=== PATIENT | female | born 1955 | race Two or more races ===

== ENCOUNTER 2016-09-28 19:26 | Inpatient (IN) | payer OTHER ==
--- NOTE | 2016-09-28 20:42 | PDOC ---
History of Present Illness <Wilfred Chu - Last Filed: 09/28/16 23:26> - General History Source: Patient, Family, Old Records Exam Limitations: No Limitations - History of Present Illness Initial Comments: 09/28/16 21:56 The patient is a 61 year old female presenting with family, with a significant past medical history of HTN, HLD, diabetes mellitus, Coronary artery disease s/ p CABG, who presents to the emergency department with headache and fever for the last 3 days. She reports that her fevers are intermittent in nature, going as high as 100.0 F. The daughter has been giving the patient Tylenol during this time frame, with the last dose being this morning. She reports that her headache is localized in the front and back of her head, ranging from mild to moderate, without radiation. She notes that the pain is exacerbated when states a deep breath. She denies photophobia or double vision. She also reports right lower extremity pain with decreased sensation and swelling. She notes that she had a draining tube placed on her gallbladder 3 weeks ago for a gallbladder infection. As per family, the physicians did not believe she was a candidate for gallbladder removal due to her recent cardiac bypass surgery. The patient denies shortness of breath and dizziness. Denies chills, nausea, vomit, diarrhea and constipation. Denies dysuria, frequency, urgency and hematuria. Allergies: None Past surgical history: CABG (08/2016) with stents (x4) Social history: No alcohol, tobacco or drug use reported <Abebe Champion - Last Filed: 09/28/16 23:48> - General Chief Complaint: Pain, Acute Stated Complaint: PAIN Time Seen by Provider: 09/28/16 20:32 Past History - Past Medical History Asthma: Yes Cardiac Disorders: Yes Diabetes: Yes HTN: Yes Hypercholesterolemia: Yes - Surgical History Cardiac Surgery: Yes ([facility] 08/2016) Cholecystectomy: (drain to GB) - Psycho/Social/Smoking Cessation Hx Anxiety: No Suicidal Ideation: No Smoking History: Never smoked Have you smoked in the past 12 months: No Hx Alcohol Use: No Drug/Substance Use Hx: No Substance Use Type: None Hx Substance Use Treatment: No <Wilfred Chu - Last Filed: 09/28/16 23:26> <Abebe Champion - Last Filed: 09/28/16 23:48> - Past Medical History Allergies/Adverse Reactions: Allergies Allergy/AdvReac Type Severity Reaction Status Date / Time aspirin Allergy Hives Verified 09/28/16 19:39 Home Medications: Ambulatory Orders Aspirin [ASA -] 81 mg PO DAILY 08/24/16 Docusate Sodium [Dok] 100 mg PO TID 08/24/16 Metformin HCl 500 mg PO BID 08/24/16 Sennosides [Senna] 8.6 mg PO HS 08/24/16 Acetaminophen [Tylenol .Regular Strength -] 650 mg PO Q6H PRN #0 tablet Amlodipine Besylate [Norvasc -] 10 mg PO DAILY #30 tablet 09/11/16 Amox-Tr/K Cl [Augmentin 875-125mg Tablet -] 1 tab PO BID@0800,1730 #20 tablet Atorvastatin Ca [Lipitor] 80 mg PO HS tablet 09/11/16 Furosemide [Lasix -] 20 mg PO DAILY tablet 09/11/16 Metoprolol Tartrate [Lopressor -] 75 mg PO BID #30 tablet 09/11/16 Pantoprazole Sodium [Protonix -] 40 mg PO DAILY #30 09/11/16 Potassium Chloride [K-Dur -] 40 meq PO DAILY 09/11/16 Review of Systems - Review of Systems Able to Perform ROS?: Yes Comments:: 09/28/16 21:54 CONSTITUTIONAL: +Fever. No chills, no fatigue EYES: No visual changes ENT: No ear pain, no sore throat CARDIOVASCULAR: No chest pain, no palpitations RESPIRATORY: No cough, no SOB GI: No abdominal pain, no nausea, no vomiting, no constipation, no diarrhea GENITOURINARY: No dysuria, no frequency, no hematuria EXTREMITIES: +Right lower extremity pain, swelling and numbness. MUSKULOSKELETAL: No backpain, no joint pain, no myalgias SKIN: No rash NEURO: +Headache <Abebe Champion - Last Filed: 09/28/16 23:48> *Physical Exam - Vital Signs Last Vital Signs Temp Pulse Resp BP Pulse Ox 99.8 F H 128 H 20 129/60 94 L 09/28/16 19:45 09/28/16 19:45 09/28/16 19:45 09/28/16 19:45 09/28/16 19:45 - Physical Exam Comments: 09/28/16 23:22 EXAMINATION CONSTITUTIONAL: Awake and alert; well-nourished, in no apparent distress HEAD: Normocephalic; atraumatic EYES: PERRL; EOM intact; no photophobia; ENMT: External appears normal; normal oropharynx; because membranes are dry NECK: Supple; non-tender; no cervical lymphadenopathy CARD: Normal S1, S2; no murmurs, rubs, or gallops; + well healed midline sternotomy scar is noted; RESP: Normal chest excursion with respiration; + decreased breath sounds at left base; no wheezes, rhonchi, or rales ABD: Soft, non-distended; non-tender; no palpable organomegaly, no palpable hernias; + cholecystostomy tube is noted in the right upper quadrant draining bile; EXT: Normal ROM in all four extremities; + 2 pitting edema of the right lower extremity; +tender to palpation along the right trapezius; distal pulses intact SKIN: Warm, dry, no petechia NEURO: Cranial nerves II through XII are grossly intact; motor is 5 of 54; <Wilfred Chu - Last Filed: 09/28/16 23:26> - Vital Signs Last Vital Signs Temp Pulse Resp BP Pulse Ox 99.8 F H 128 H 20 129/60 94 L 09/28/16 19:45 09/28/16 19:45 09/28/16 19:45 09/28/16 19:45 09/28/16 19:45 <Abebe Champion - Last Filed: 09/28/16 23:48> Heart Score/ECG Review #1 ECG reviewed & interpreted by me at: 22:12 09/28/16 20:50 Ventricular rate: 123 bpm Sinus tachycardia Nonspecific ST and T wave abnormality <Abebe Champion - Last Filed: 09/28/16 23:48> ED Treatment Course - LABORATORY CBC & Chemistry Diagram: 09/28/16 21:39 09/28/16 21:39 <Wilfrde Chu - Last Filed: 09/28/16 23:26> - LABORATORY CBC & Chemistry Diagram: 09/28/16 21:39 09/28/16 21:39 - ADDITIONAL ORDERS Additional order review: 09/28/16 21:39 RBC 4.33 MCV 84.1 MCHC 33.6 RDW 14.7 MPV 8.5 Neutrophils % 64.4 D Lymphocytes % 27.8 D Monocytes % 6.3 Eosinophils % 0.8 Basophils % 0.7 - RADIOLOGY Radiograph Interpretation: 09/28/16 22:35 Chest X-Ray Reviewed by: Dr. Giselle Mesa Impression: Interval atelectatic changes and probable patchy infiltrates in the left lower lobe. <Abebe Champion - Last Filed: 09/28/16 23:48> Medical Decision Making - Medical Decision Making 09/28/16 23:24 Patient 61-year-old female with multiple comorbidities who presents with low- grade fever and a nonproductive cough. In the ER, patient is awake and alert, nontoxic-appearing, without evidence of meningismus. Patient's febrile, tachycardic and hypoxemic; CBC reveals mild leukocytosis with normal differential. CMP reveals a normal lactic acid. Urinalysis reveals a mixture of pyuria and microscopic hematuria. Chest x-ray reveals a left lower lobe infiltrate. Given patient's previous hospital admissions, hospital-acquired pneumonia is suspected. We'll cover with vancomycin and Zosyn. Will rule out DVT with Doppler ultrasound. Will admit. <Wilfred Chu - Last Filed: 09/28/16 23:26> - Medical Decision Making 09/28/16 23:47 Dr. Becerril was called regarding the patient at 10:57pm Dr. Becerril was consulted regarding the patient at 11:05pm [phone] <Abebe Champion - Last Filed: 09/28/16 23:48> *DC/Admit/Observation/Transfer - Discharge Dispostion Admit: Yes <Wilfred Chu - Last Filed: 09/28/16 23:26> - Attestations Scribe Attestion: 09/28/16 21:53 Documentation prepared by Abebe Champion, acting as medical transcription radiology for Wilfred Chu MD <Abebe Champion - Last Filed: 09/28/16 23:48> Diagnosis at time of Disposition: Pneumonia Qualifiers: Pneumonia type: due to unspecified organism Laterality: left Lung location: lower lobe of lung Qualified Code(s): J18.1 - Lobar pneumonia, unspecified organism
[2016-09-28] MEDS ORDERED: SODIUM CHLORIDE 0.9% 1000 ML INFUS.BAG IV PRN (20:54)
[2016-09-28] MEDS ORDERED: ACETAMINOPHEN 325 MG TABLET (FP) PO ONE (21:13)
[2016-09-28 21:50] LABS: BASOPHIL 0.7 % (0-2.0); EOSINOPHIL 0.8 % (0-4.5); MCH 28.3 pg (25.7-33.7); MCHC 33.6 g/dl (32.0-36.0); MEAN CELL VOLUME 84.1 fl (80-96); MEAN PLT VOLUME 8.5 fl (7.5-11.1); NEUTROPHILS 64.4 % (42.8-82.8); PLATELET COUNT 343 K/MM3 (134-434); RDW 14.7 % (11.6-15.6); WHITE BLOOD COUNT 12.3 K/mm3 (4.0-10.0)
[2016-09-28 22:03] LABS: INR 1.18 (0.82-1.09)
[2016-09-28 22:05] LABS: VENOUS BLOOD GAS HCO3 23.9 meq/L (19-25); VENOUS PH 7.46 (7.32-7.42)
[2016-09-28 22:05] LABS: ACTIVATED PTT 35.6 SECONDS (26.9-34.4)
[2016-09-28 22:12] LABS: ALBUMIN 3.3 g/dl (3.4-5.0); ANION GAP 14 (8-16); BILIRUBIN,TOTAL 0.3 mg/dL (0.2-1.0); CO2 24 mmol/L (21-32); CREATININE 0.5 mg/dL (0.55-1.02); GLUCOSE,RANDOM 192 mg/dL (74-106); SGPT/ALT 48 U/L (12-78)
[2016-09-28 22:14] LABS: ALK PHOS 176 U/L (45-117); TROPONIN I < 0.02 ng/ml (0.00-0.05)
[2016-09-28 22:23] LABS: SGOT/AST 35 U/L (15-37)
[2016-09-28 22:26] LABS: URINE APPEARANCE SLCLOUDY; URINE BILIRUBIN NEGATIVE (NEGATIVE); URINE BLOOD NEGATIVE (NEGATIVE); URINE COLOR YELLOW; URINE GLUCOSE (UA) NEGATIVE (NEGATIVE); URINE KETONE NEGATIVE (NEGATIVE); URINE NITRITE NEGATIVE (NEGATIVE); URINE PROTEIN NEGATIVE (NEGATIVE); URINE UROBILINOGEN NEGATIVE E.U./dl (0.2-1.0)
[2016-09-28] MEDS ORDERED: PIPERACILLIN/TAZOB 3.375 GM/50 ML PRE-DOCKED IV ONE (22:26)
[2016-09-28 22:30] LABS: URINE LEUK ESTERASE 1+ (NEGATIVE)
[2016-09-28 22:32] LABS: CALCIUM OXALATE CRYSTALS MODERATE /hpf (NONE SEEN); URINE BACTERIA FEW /hpf (NONE SEEN); URINE MUCUS MANY; URINE RBC 39 /hpf (0-3); URINE WBC 31 /hpf (3-5)
[2016-09-28] MEDS ORDERED: AZITHROMYCIN IVPB 500 MG in DEXTROSE 5%-WATER - 250 ML IVPB ONE (22:37)
[2016-09-28] MEDS ORDERED: CEFTRIAXONE 1 GM in DEXTROSE 5%-WATER - 50 ML IVPB ONE (22:37)
[2016-09-28] MEDS ORDERED: PIPERACILLIN/TAZOB 3.375 GM 3.375 GM in DEXTROSE 5%-WATER - 50 ML IVPB ONE (22:39)
[2016-09-28] MEDS ORDERED: VANCOMYCIN 1,250 MG in DEXTROSE 5%-WATER - 250 ML IVPB ONE (22:47)
[2016-09-28] MEDS ORDERED: PIPERACILLIN/TAZOB 3.375 GM 50 ML IVPB ONE (22:53)
[2016-09-28] MEDS ORDERED: VANCOMYCIN 1 GRAM (PRE-DOCKED) 250 ML IVPB ONE (22:53)
--- NOTE | 2016-09-29 00:05 | HP ---
CHIEF COMPLAINT: Shortness of breath PCP: No PCP HISTORY OF PRESENT ILLNESS: Patient is a 61-year-old sinhala speaking female presented with the chief complaints of shortness of breath since few days. As per the patient, she has been having SOB even at rest associated with dry cough. SOB increases with deep breath and said it hurts in the upper side of the right chest and neck. [place] feverish but temperature wasn't recorded. Denies chills, rigors, sweating, abdominal pain, nausea or vomiting. Patient states that she had a CABG a month ago at [facility]. In the mean time, she had severe abdominal pain and was diagnosed with acalculous cholecystitis. Since she had just undergone CABG, cholecystostomy was done 3 weeks ago and elective cholecystectomy is scheduled on October,. Bowel/Bladder habit normal. Sleep/Appetite normal. ER course was notable for: (1) T-99.8 F; Tachycardic 128 bpm, Spo2- 94 % RA; Leukocytosis (12.3); UA-1 +LE ; Urine RBC 39; Urine WBC 31 (2) CXR- Some atelectasis with left lower lobe pneumonia (3) IV Zosyn; IV Vancomycin Recent Travel: None PAST MEDICAL HISTORY: Hypertension, Hyperlipidemia, Diabetes Mellitus, CAD s/p CABG. PAST SURGICAL HISTORY: As mentioned above Social History: Smoking: Denies Alcohol: Denies Drugs: Denies Family History: Unknown Allergies aspirin Allergy (Verified 09/28/16 19:39) Hives PT STATES IF SHE TAKES 325MG DEVELOPS FACIAL SWELLING,RASH AND HIVES. But she takes ASA 81mg everyday without any allergy. HOME MEDICATIONS: Home Medications Medication Instructions Recorded Aspirin [ASA -] 81 mg PO DAILY 08/24/16 Docusate Sodium [Dok] 100 mg PO TID 08/24/16 Metformin HCl 500 mg PO BID 08/24/16 Sennosides [Senna] 8.6 mg PO HS 08/24/16 Acetaminophen [Tylenol .Regular 650 mg PO Q6H PRN #0 tablet 09/11/16 Strength -] Amlodipine Besylate [Norvasc -] 10 mg PO DAILY #30 tablet 09/11/16 Amox-Tr/K Cl [Augmentin 875-125mg 1 tab PO BID@0800,1730 #20 tablet 09/11/16 Tablet -] Atorvastatin Ca [Lipitor] 80 mg PO HS tablet 09/11/16 Furosemide [Lasix -] 20 mg PO DAILY tablet 09/11/16 Metoprolol Tartrate [Lopressor -] 75 mg PO BID #30 tablet 09/11/16 Pantoprazole Sodium [Protonix -] 40 mg PO DAILY #30 09/11/16 Potassium Chloride [K-Dur -] 40 meq PO DAILY 09/11/16 REVIEW OF SYSTEMS CONSTITUTIONAL: Present: Feverish Absent: chills, diaphoresis, generalized weakness, malaise, loss of appetite, weight change HEENT: Absent: rhinorrhea, nasal congestion, throat pain, throat swelling, difficulty swallowing, mouth swelling, ear pain, eye pain, visual changes CARDIOVASCULAR: Absent: chest pain, syncope, palpitations, irregular heart rate, lightheadedness , peripheral edema RESPIRATORY: Present: shortness of breath, dyspnea with exertion Absent: cough, , orthopnea, wheezing, stridor, hemoptysis GASTROINTESTINAL: Absent: abdominal pain, abdominal distension, nausea, vomiting, diarrhea, constipation, melena, hematochezia GENITOURINARY: Absent: dysuria, frequency, urgency, hesitancy, hematuria, flank pain, genital pain MUSCULOSKELETAL: Absent: myalgia, arthralgia, joint swelling, back pain, neck pain SKIN: Absent: rash, itching, pallor HEMATOLOGIC/IMMUNOLOGIC: Absent: easy bleeding, easy bruising, lymphadenopathy, frequent infections ENDOCRINE: Absent: unexplained weight gain, unexplained weight loss, heat intolerance, cold intolerance NEUROLOGIC: Absent: headache, focal weakness or paresthesias, dizziness, unsteady gait, seizure, mental status changes, bladder or bowel incontinence PSYCHIATRIC: Absent: anxiety, depression, suicidal or homicidal ideation, hallucinations. PHYSICAL EXAMINATION Vital Signs - 24 hr 09/28/16 19:45 Temperature 99.8 F H Pulse Rate 128 H Respiratory 20 Rate Blood Pressure 129/60 O2 Sat by Pulse 94 L Oximetry (%) GENERAL: Moderately built female, Awake, alert, and fully oriented, in no acute distress. HEAD: Normal with no signs of trauma. EYES: EOM intact, no pallor or icterus. EARS, NOSE, THROAT: Ears normal. Moist mucous membranes. NECK: Supple. LUNGS: Breath sounds equal, clear to auscultation bilaterally. No wheezes, and no crackles. No accessory muscle use. HEART: Surgical scar s/p CABG, clean wound, no discharge, tenderness on palpation, Regular rate and rhythm, normal S1 and S2 without murmur. ABDOMEN: Cholecystostomy with a drain placed on the right upper quadrant, Soft, tenderness around the surgical site, not distended, normoactive bowel sounds, no guarding, no rebound, no masses. Hepatomegaly or splenomegaly couldn't be appreciated. MUSCULOSKELETAL: Normal range of motion at all joints. No bony deformities or tenderness. No CVA tenderness. UPPER EXTREMITIES: 2+ pulses, warm, well-perfused. No cyanosis. No clubbing. No peripheral edema. LOWER EXTREMITIES: 2+ pulses, warm, well-perfused. Tenderness on palpation. Right lower extremity swelling > Left. NEUROLOGICAL: Cranial nerves II-XII intact. Normal speech. Gait not observed. PSYCHIATRIC: Cooperative. Good eye contact. Appropriate mood and affect. SKIN: Warm, dry cracked skin on the foot, normal turgor, no rashes or lesions noted, normal capillary refill. Laboratory Results - last 24 hr 09/28/16 09/28/16 09/28/16 21:39 21:39 21:39 WBC 12.3 H D RBC 4.33 Hgb 12.3 D Hct 36.4 MCV 84.1 MCHC 33.6 RDW 14.7 Plt Count 343 MPV 8.5 Neutrophils % 64.4 D Lymphocytes % 27.8 D Monocytes % 6.3 Eosinophils % 0.8 Basophils % 0.7 INR 1.18 H PTT (Actin FS) 35.6 H VBG pH POC VBG pCO2 POC VBG pO2 Mixed VBG HCO3 Sodium 137 Potassium 4.3 Chloride 99 Carbon Dioxide 24 Anion Gap 14 BUN 9 D Creatinine 0.5 L D Creat Clearance w eGFR > 60 Random Glucose 192 H Lactic Acid Calcium 9.0 Total Bilirubin 0.3 D AST 35 D ALT 48 D Alkaline Phosphatase 176 H Creatine Kinase 108 Troponin I < 0.02 Total Protein 7.0 Albumin 3.3 L D Urine Color Urine Appearance Urine pH Ur Specific [place] Urine Protein Urine Glucose (UA) Urine Ketones Urine Blood Urine Nitrite Urine Bilirubin Urine Urobilinogen Ur Leukocyte Esterase Urine RBC Urine WBC Ur Epithelial Cells Calcium Oxalate Crystal Urine Bacteria Urine Mucus 09/28/16 09/28/16 09/28/16 21:39 22:00 22:19 WBC RBC Hgb Hct MCV MCHC RDW Plt Count MPV Neutrophils % Lymphocytes % Monocytes % Eosinophils % Basophils % INR PTT (Actin FS) VBG pH 7.46 H POC VBG pCO2 33.9 L POC VBG pO2 40.3 Mixed VBG HCO3 23.9 Sodium Potassium Chloride Carbon Dioxide Anion Gap BUN Creatinine Creat Clearance w eGFR Random Glucose Lactic Acid 1.420 Calcium Total Bilirubin AST ALT Alkaline Phosphatase Creatine Kinase Troponin I Total Protein Albumin Urine Color Yellow Urine Appearance Slcloudy Urine pH 5.0 D Ur Specific [place] 1.023 Urine Protein Negative Urine Glucose (UA) Negative Urine Ketones Negative Urine Blood Negative Urine Nitrite Negative Urine Bilirubin Negative Urine Urobilinogen Negative Ur Leukocyte Esterase 1+ H Urine RBC 39 Urine WBC 31 Ur Epithelial Cells Rare Calcium Oxalate Crystal Moderate Urine Bacteria Few Urine Mucus Many ASSESSMENT/PLAN: Patient is a 61 year old female with significant past medical history of Hypertension, Hyperlipidemia, Diabetes Mellitus, CAD s/p CABG presented with the chief complaints of shortness of breath since few days. # Hospital acquired Pneumonia Patient presented with shortness of breath, pleuritic chest pain x 3 days. On arrival, T-99.8 F; Tachycardic 128 bpm, Spo2- 94 % RA; Leukocytosis (12.3) ; CXR showed some atelectasis with left lower lobe pneumonia Flu swab negative for Influenza Patient received IV Zosyn; IV Vancomycin in the ED Admitted in Med-Surg IV Zosyn and Vancomycin to be continued after ID approval. ID consult placed Blood culture, urine culture pending. CXR to be repeated tomorrow Nasal oxygen PRN # Gall stone s/p cholecystostomy Measure the output Would consider surgical consult # CAD s/p CABG Continue Aspirin, statin # Hypertension Continue Metoprolol # Hyperlipidemia Continue statin # Diabetes Mellitus Finger stick glucose monitoring Insulin sliding scale HbA1c pending Metformin continue # Right leg swelling Doppler of right leg-negative for DVT # FEN Not on IV fluids Electrolytes to be repeated tomorrow Diabetic diet # Prophylaxis For DVT- On Heparin 5000 IU sq For GI- On pantoprazole # Code Status Full Code # Dispo: Admitted in Med-Surg. Duration of stay unknown Illness, Investigation and Plan of care explained to the patient. She verbalized understanding. Case seen and discussed with Dr. Reyes. Visit type - Emergency Visit Emergency Visit: Yes ED Registration Date: 09/28/16 Care time: The patient presented to the Emergency Department on the above date and was hospitalized for further evaluation of their emergent condition. - New Patient This patient is new to me today: Yes Date on this admission: 09/28/16 - Critical Care Critical Care patient: No
--- NOTE | 2016-09-29 00:23 | PN ---
<Azar Reyes - Last Filed: 09/29/16 00:23> Teaching Attending Note Name of Resident: Padmini Dallas ATTENDING PHYSICIAN STATEMENT I saw and evaluated the patient. I reviewed the resident's note and discussed the case with the resident. I agree with the resident's findings and plan as documented. SUBJECTIVE: OBJECTIVE: ASSESSMENT AND PLAN: <Aletha Rodriguez - Last Filed: 09/29/16 00:28> Teaching Attending Note ATTENDING PHYSICIAN STATEMENT I saw and evaluated the patient. I reviewed the resident's note and discussed the case with the resident. I agree with the resident's findings and plan as documented. SUBJECTIVE: Patient is a 61 yo F with a PMHx of recent hospitalization, HTN, HLD, diabetes mellitus, Coronary artery disease s/p CABG who presents with right shoulder pain and pleuritic chest pain for 3 days. History translated as per patients daughter. Patient reports the pain worsens upon inspiration. Patient notes she was recently hospitalized for cardiac bypass surgery and received antibiotics. Patient reports associated right lower extremity pain and edema. Patient also notes polyuria, fevers, shortness of breath, and a poor appetite. Patient denies cough and lightheadedness. Patient states her last BM was 2 days ago. Family Hx: [place], [place] OBJECTIVE: Last Vital Signs Temp Pulse Resp BP Pulse Ox 99.8 F H 128 H 20 129/60 94 L 09/28/16 19:45 09/28/16 19:45 09/28/16 19:45 09/28/16 19:45 09/28/16 19:45 GENERAL: Awake, alert, and fully oriented, in no acute distress. HEENT: Atraumatic. Moist mucosa. Normocephalic. No sinus tenderness. No LAD. NECK: No JVD. No thyroid masses. Supple. LUNGS: Clear to auscultation bilaterally. No wheezing, rhonchi or rales. HEART: Regular rate and rhythm, normal S1 and S2, no murmurs, rubs or gallops, peripheral pulses normal and equal bilaterally. Tenderness on palpation of sternum around post surgical CABG scar. ABDOMEN: Soft, nontender, normoactive bowel sounds. No guarding, no rebound. No Masses. RUQ drain MUSCULOSKELETAL: No joint tenderness or erythema. No muscle tenderness. Normal muscle bulk and tone. EXTREMITIES: Normal inspection, Right LE edema. No clubbing or cyanosis. Moves all extremities. NEUROLOGICAL: Normal speech, no focal sensorimotor deficits. SKIN: Warm, dry, normal turgor, no rashes or lesions noted. CBCD WBC 12.3 K/mm3 (4.0-10.0) H D 09/28/16 21:39 RBC 4.33 M/mm3 (3.60-5.2) 09/28/16 21:39 Hgb 12.3 GM/dL (10.7-15.3) D 09/28/16 21:39 Hct 36.4 % (32.4-45.2) 09/28/16 21:39 MCV 84.1 fl (80-96) 09/28/16 21:39 MCHC 33.6 g/dl (32.0-36.0) 09/28/16 21:39 RDW 14.7 % (11.6-15.6) 09/28/16 21:39 Plt Count 343 K/MM3 (134-434) 09/28/16 21:39 MPV 8.5 fl (7.5-11.1) 09/28/16 21:39 CMP Sodium 137 mmol/L (136-145) 09/28/16 21:39 Potassium 4.3 mmol/L (3.5-5.1) 09/28/16 21:39 Chloride 99 mmol/L (98-107) 09/28/16 21:39 Carbon Dioxide 24 mmol/L (21-32) 09/28/16 21:39 Anion Gap 14 (8-16) 09/28/16 21:39 BUN 9 mg/dL (7-18) D 09/28/16 21:39 Creatinine 0.5 mg/dL (0.55-1.02) L D 09/28/16 21:39 Creat Clearance w eGFR > 60 (>60) 09/28/16 21:39 Calcium 9.0 mg/dL (8.5-10.1) 09/28/16 21:39 Total Bilirubin 0.3 mg/dL (0.2-1.0) D 09/28/16 21:39 AST 35 U/L (15-37) D 09/28/16 21:39 ALT 48 U/L (12-78) D 09/28/16 21:39 Alkaline Phosphatase 176 U/L (45-117) H 09/28/16 21:39 Total Protein 7.0 g/dl (6.4-8.2) 09/28/16 21:39 Albumin 3.3 g/dl (3.4-5.0) L D 09/28/16 21:39 ASSESSMENT AND PLAN: 61 yo F with recent Hx of hospitalization that presents to ED complaining of pleuritic chest pain. 1.) Pleuritic chest pain associated with leukocytosis and evidence of radiological findings of left lower lobe pneumonia in a patient with Hx of recent hospitalization and treatment with antibiotics. Systemic inflammatory response syndrome. -IVF -BLood cultures -IV antibiotics for coverage of Hospital acquired pneumonia -If no fever after 24 hours, may DC home on oral antibiotics 2.) Recent Hx of acalculous cholecystitis s/p cholecystostomy. No drainage noted. Liver enzymes and bilirubin within normal limits. -Surgery follow up to plan for elective cholecystectomy 3.) Hx of coronary artery disease and recent CABG -Continue with pain control PRN tylenol, IV narcotics as needed for breakthrough pain -Incentive spirometry -Continue current medication regimen, metoprolol, aspirin, statins, lasix 4.) Diabetes -Continue metformin and provide coverage with sliding scale 5.) HTN controlled -Continue with current medications 6.) US of RLE to r/o DVT DVT ppx -Heparin sc Admit to [facility] Documentation prepared by Aletha Rodriguez, acting as certified medical dosimetrist for Azar Reyes M.D.
[2016-09-29] MEDS ORDERED: ACETAMINOPHEN 325 MG TABLET (FP) PO PRN (00:49)
[2016-09-29 03:29] VITALS: BMI 29.8
[2016-09-29] MEDS: DOCUSATE SODIUM 100 MG CAPSULE (FP) PO SCH ×2 (06:04→13:00)
[2016-09-29] MEDS: HEPARIN NA (PORCINE) 5,000 UNITS/ML 1ML VIAL SQ SCH ×2 (06:04→13:00)
[2016-09-29] MEDS: INSULIN SLIDING SCALE (NOVOLOG) 1 VIAL SQ SCH ×3 (06:17→17:42)
[2016-09-29] MEDS: metFORMIN HCL 500 MG TABLET (FP) PO SCH ×2 (06:28→17:42)
[2016-09-29 07:58] LABS: BASOPHIL 0.7 % (0-2.0); EOSINOPHIL 1.6 % (0-4.5); MCH 28.5 pg (25.7-33.7); MEAN PLT VOLUME 8.3 fl (7.5-11.1); NEUTROPHILS 50.1 % (42.8-82.8); PLATELET COUNT 280 K/MM3 (134-434); RDW 14.4 % (11.6-15.6); WHITE BLOOD COUNT 7.4 K/mm3 (4.0-10.0)
[2016-09-29 08:26] LABS: INR 1.25 (0.82-1.09); PROTHROMBIN TIME (PATIENT) 13.8 SEC (9.98-11.88)
[2016-09-29 08:27] LABS: ACTIVATED PTT 33.6 SECONDS (26.9-34.4)
[2016-09-29 08:36] LABS: ALBUMIN 2.9 g/dl (3.4-5.0); ANION GAP 11 (8-16); CO2 26 mmol/L (21-32)
[2016-09-29 08:42] LABS: ALK PHOS 148 U/L (45-117); BILIRUBIN,TOTAL 0.4 mg/dL (0.2-1.0); CALCIUM 8.8 mg/dL (8.5-10.1); CREATININE 0.4 mg/dL (0.55-1.02); GLUCOSE,RANDOM 160 mg/dL (74-106); SGOT/AST 18 U/L (15-37); SGPT/ALT 39 U/L (12-78); TOT PROT 6.3 g/dl (6.4-8.2)
[2016-09-29] MEDS ORDERED: FUROSEMIDE 20 MG TABLET (FP) PO SCH (10:00)
[2016-09-29] MEDS ORDERED: amLODIPine BESYLATE 10 MG TABLET (FP) PO SCH (10:00)
[2016-09-29] MEDS ORDERED: PANTOPRAZOLE 40 MG TABLET (FP) PO SCH (10:00)
[2016-09-29] MEDS ORDERED: ASPIRIN 81 MG CHEWABLE TABLETS PO SCH (10:00)
[2016-09-29] MEDS ORDERED: POTASSIUM CHLORIDE TABS 20 MEQ TABLET.ER (FP) PO SCH (10:00)
[2016-09-29] MEDS ORDERED: METOPROLOL TARTRATE 25 MG TABLET (FP) PO SCH (10:00)
--- NOTE | 2016-09-29 12:21 | EKG ---
Test Reason : Blood Pressure : / mmHG Vent. Rate : 123 BPM Atrial Rate : 123 BPM P-R Int : 150 ms QRS Dur : 084 ms QT Int : 314 ms P-R-T Axes : 036 080 190 degrees QTc Int : 449 ms SINUS TACHYCARDIA NONSPECIFIC ST AND T WAVE ABNORMALITY ABNORMAL ECG WHEN COMPARED WITH ECG OF 08-SEP-2016 11:39, MINIMAL CRITERIA FOR INFERIOR INFARCT ARE NO LONGER PRESENT NONSPECIFIC T WAVE ABNORMALITY HAS REPLACED INVERTED T WAVES IN INFERIOR LEADS T WAVE INVERSION NO LONGER EVIDENT IN LATERAL LEADS Confirmed by SUJATA BROOKS MD ([id number]) on 09/29/2016 12:21:24 PM Referred By: Confirmed By:SUJATA BROOKS MD
[2016-09-29] MEDS ORDERED: PIPERACILLIN/TAZOB 3.375 GM 50 ML IVPB ONE (12:45)
--- NOTE | 2016-09-29 13:09 | MSN ---
Progress Note (short form) - Note Progress Note: Saw patient this AM. Patient has improved since admission overnight. Patient complains of no more SOB, but complains of a 4/10 pain when she takes deep breaths. Pain is reproducible in right upper shoulder and neck while supine. Patient also complains of pain in her right ankle area which appears bruised. Pain in ankle started after her CABG surgery on 08/11. Patient denies F/C, N/V, shortness of breath, dizziness/lightheadedness, chest pain, diarrhea, constipation. Current Medications Generic Name Dose Route Start Last Admin Trade Name Freq PRN Reason Stop Dose Admin Acetaminophen 650 mg 09/29/16 00:49 Tylenol - PO Q6H PRN FEVER OR PAIN Amlodipine Besylate 10 mg 09/29/16 10:00 09/29/16 09:43 Norvasc - PO 10 mg DAILY BLANCA Administration Aspirin 81 mg 09/29/16 10:00 09/29/16 09:42 Asa - PO 81 mg DAILY BLANCA Administration Atorvastatin Calcium 80 mg 09/29/16 22:00 Lipitor - PO HS BLANCA Docusate Sodium 100 mg 09/29/16 06:00 09/29/16 06:04 Colace - PO Not Given TID BLANCA Furosemide 20 mg 09/29/16 10:00 09/29/16 09:42 Lasix - PO 20 mg DAILY BLANCA Administration Heparin Sodium (Porcine) 5,000 unit 09/29/16 06:00 09/29/16 06:04 Heparin - SQ 5,000 unit TID BLANCA Administration Piperacillin Sod/Tazobactam Sod 50 mls @ 100 mls/hr 09/29/16 12:45 Zosyn 3.375gm Ivpb (Pre-Docked) IVPB 09/29/16 13:14 ONCE ONE Protocol Insulin Aspart 1 vial 09/29/16 07:00 09/29/16 11:24 Novolog Vial Sliding Scale - SQ Not Given ACHS [facility] Protocol Metformin HCl 500 mg 09/29/16 07:00 09/29/16 06:28 Glucophage - PO 500 mg BIDI BLANCA Administration Metoprolol Tartrate 75 mg 09/29/16 10:00 09/29/16 09:43 Lopressor - PO 75 mg BID BLACNA Administration Pantoprazole Sodium 40 mg 09/29/16 10:00 09/29/16 09:42 Protonix - PO 40 mg DAILY BLANCA Administration Potassium Chloride 40 meq 09/29/16 10:00 09/29/16 09:43 K-Dur - PO 40 meq DAILY BLANCA Administration Senna 1 tab 09/29/16 22:00 Senna - PO HS BLANCA Vital Signs Period Temp Pulse Resp BP Sys/Roger Pulse Ox Last 24 Hr 98.2 F-99.8 F 114-128 18-20 121-129/60-73 94-96 PHYSICAL EXAM GENERAL: Patient alert, oriented. In no apparent distress HEAD: No signs of trauma, PERRLA, EOM intact, conjunctiva clear NECK: Trachea midline, no JVD, 4/10 shoulder and neck pain when patient takes deep breaths. reproducible when patient supine HEART: Regular rate, rhythm. +S1, S2. No murmurs, gallops. CABG surgery scar appreciated with no discharge, clean wound LUNGS: Equal breath sounds bilaterally. No wheezes, rhonchi ABDOMEN: Cholecystostomy tube appreciated with brown discharge, soft, nontender , normoactive bowel sounds EXTREMITIES: 2+ pulses bilaterally, no edema, warmth, 5/10 R ankle pain with bruising appreciated NEURO: shelter monitor intact, gait not observed CXR: Atelectic changes + probably patchy infiltrates in left lower lobe Vascular study: No DVT in right extremity ASSESSMENT AND PLAN 61 y/o F with PMHx of HTN, Type 2 Diabetes, CAD s/p CABG admitted for SOB secondary to hospital acquired pneumonia 1. Hospital Acquired Pneumonia -Improved -WBC down from 12.3 to 7.4, continue to monitor -CXR done this AM shows no changes from yesterday's CXR -IV Zosyn, Vanco given in ED -Will give one more dose of Zosyn and Vanco -ID Consult placed for further treatment of LLL -Blood cx, urine cx pending -Repeat CXR tomorrow in AM -Incentive spirometry for atelectasis 2. S/p cholecystostomy -Appreciated drainage, brown in color -Elective cholecystectomy to be done 10/20 3. CAD s/p CABG -CABG done 08/11 -Continue aspirin 4. HTN -Stable -Continue Metoprolol, Norvasc 5. Type 2 Diabetes -Stable -Continue Sliding Scale Insulin -Continue BGCs 6. HLD -Stable -Continue Statin 7. R Leg Swelling -Appears bruised -Doppler negative for DVT 8. Prophylaxis -Heparin drip for DVT Px Dispo: Med/surg
--- NOTE | 2016-09-29 15:27 | CONSULT ---
Consult Consult Specialty:: infectious diseases Reason for Consultation:: r/o pneumonia - History of Present Illness Chief Complaint: neck pain,back pain History of Present Illness: this patient well known to me from last admission presented with the chief complaints of shortness of breath since few days. As per the patient, she has been having SOB even at rest associated with dry cough. SOB increases with deep breath and said it hurts in the upper side of the right chest and neck. [place] feverish but temperature wasn't recorded. Denies chills, rigors, sweating, abdominal pain, nausea or vomiting. patient had a prolonged course in the last admission and still has the choley tube in place - History Source History Provided By: Family Member Limitations to Obtaining History: Language Barrier - Past Medical History Cardio/Vascular: Yes: CAD, HTN, Hyperlipdemia Gastrointestinal: Yes: Other (Denies history of RUQ pain or gallstone disease) Hepatobiliary: Yes: Cholecystitis - Past Surgical History Past Surgical History: Yes: CABG - Alcohol/Substance Use Hx Alcohol Use: No - Smoking History Smoking history: Never smoked Have you smoked in the past 12 months: No - Social History ADL: Independent History of Recent Travel: No Home Medications - Allergies Allergies/Adverse Reactions: Allergies Allergy/AdvReac Type Severity Reaction Status Date / Time aspirin Allergy Hives Verified 09/28/16 19:39 - Home Medications Home Medications: Ambulatory Orders Aspirin [ASA -] 81 mg PO DAILY 08/24/16 Docusate Sodium [Dok] 100 mg PO TID 08/24/16 Metformin HCl 500 mg PO BID 08/24/16 Sennosides [Senna] 8.6 mg PO HS 08/24/16 Acetaminophen [Tylenol .Regular Strength -] 650 mg PO Q6H PRN #0 tablet Amlodipine Besylate [Norvasc -] 10 mg PO DAILY #30 tablet 09/11/16 Amox-Tr/K Cl [Augmentin 875-125mg Tablet -] 1 tab PO BID@0800,1730 #20 tablet Atorvastatin Ca [Lipitor] 80 mg PO HS tablet 09/11/16 Furosemide [Lasix -] 20 mg PO DAILY tablet 09/11/16 Metoprolol Tartrate [Lopressor -] 75 mg PO BID #30 tablet 09/11/16 Pantoprazole Sodium [Protonix -] 40 mg PO DAILY #30 09/11/16 Potassium Chloride [K-Dur -] 40 meq PO DAILY 09/11/16 Family Disease History - Family Disease History Family Disease History: Diabetes: Mother (alive - DM in several sibs), Other: Father ( in MVA) Review of Systems - Review of Systems Constitutional: reports: No Symptoms Eyes: reports: No Symptoms HENT: reports: No Symptoms Neck: reports: Tenderness (rt side) Cardiovascular: reports: No Symptoms Respiratory: reports: No Symptoms Gastrointestinal: reports: No Symptoms Genitourinary: reports: No Symptoms Breasts: reports: No Symptoms Reported Musculoskeletal: reports: Back Pain Integumentary: reports: No Symptoms Neurological: reports: No Symptoms Endocrine: reports: No Symptoms Hematology/Lymphatic: reports: No Symptoms Psychiatric: reports: No Symptoms Physical Exam Vital Signs: Vital Signs Temperature 97.8 F 09/29/16 14:22 Pulse Rate 87 09/29/16 14:22 Respiratory Rate 18 09/29/16 14:22 Blood Pressure 115/62 09/29/16 14:22 O2 Sat by Pulse Oximetry (%) 95 09/29/16 09:00 Constitutional: Yes: Well Nourished, Obese Eyes: Yes: Conjunctiva Clear, EOM Intact Neck: Yes: Supple Cardiovascular: Yes: Regular Rate and Rhythm Respiratory: Yes: Regular, CTA Bilaterally Gastrointestinal: Yes: Normal Bowel Sounds, Other (choley tube in place) Musculoskeletal: Yes: WNL Extremities: Yes: WNL Integumentary: Yes: WNL Wound/Incision: Yes: Clean/Dry Neurological: Yes: Alert, Oriented Psychiatric: Yes: Alert, Oriented Labs: CBC, BMP 09/29/16 06:00 09/29/16 06:00 Imaging - Results Chest X-ray: Report Reviewed, Image Reviewed Assessment/Plan # Gall stone s/p cholecystostomy tube # CAD s/p CABG # Hypertension # Hyperlipidemia # Diabetes Mellitus # Right leg swelling pneumonia i am not very impressed with the findings clinically, there are some findings on the chest xray patient has had major issues plan i am going to start on oral abx will await for cx to come back
--- NOTE | 2016-09-29 16:30 | PN ---
Physical Exam: SUBJECTIVE: Patient seen and examined OBJECTIVE: Vital Signs Period Temp Pulse Resp BP Sys/Roger Pulse Ox Last 24 Hr 97.8 F-98.6 F 87-117 18-20 115-122/62-73 95-96 GENERAL: The patient is awake, alert, and fully oriented, in no acute distress. HEAD: Normal with no signs of trauma. EYES: PERRL, extraocular movements intact, sclera anicteric, conjunctiva clear. No ptosis. ENT: Ears normal, nares patent, oropharynx clear without exudates, moist mucous membranes. NECK: Trachea midline, full range of motion, supple. LUNGS: Breath sounds equal, clear to auscultation bilaterally, no wheezes, no crackles, no accessory muscle use. HEART: Regular rate and rhythm, S1, S2 without murmur, rub or gallop. ABDOMEN: Soft, nontender, nondistended, normoactive bowel sounds, no guarding, no rebound, no hepatosplenomegaly, no masses. EXTREMITIES: 2+ pulses, warm, well-perfused, no edema. NEUROLOGICAL: Cranial nerves II through XII grossly intact. Normal speech, gait not observed. PSYCH: Normal mood, normal affect. SKIN: Warm, dry, normal turgor, no rashes or lesions noted Laboratory Results - last 24 hr 09/29/16 09/29/16 09/29/16 06:00 06:00 06:00 WBC 7.4 D RBC 4.10 Hgb 11.7 Hct 34.4 MCV 84.0 MCHC 34.0 RDW 14.4 Plt Count 280 MPV 8.3 Neutrophils % 50.1 D Lymphocytes % 38.7 D Monocytes % 8.9 Eosinophils % 1.6 D Basophils % 0.7 INR 1.25 H PTT (Actin FS) 33.6 Sodium 140 Potassium 4.0 Chloride 103 Carbon Dioxide 26 Anion Gap 11 BUN 6 L D Creatinine 0.4 L Creat Clearance w eGFR > 60 POC Glucometer Random Glucose 160 H Calcium 8.8 Total Bilirubin 0.4 D AST 18 D ALT 39 Alkaline Phosphatase 148 H Total Protein 6.3 L Albumin 2.9 L 09/29/16 09/29/16 06:09 11:13 WBC RBC Hgb Hct MCV MCHC RDW Plt Count MPV Neutrophils % Lymphocytes % Monocytes % Eosinophils % Basophils % INR PTT (Actin FS) Sodium Potassium Chloride Carbon Dioxide Anion Gap BUN Creatinine Creat Clearance w eGFR POC Glucometer 164 120 Random Glucose Calcium Total Bilirubin AST ALT Alkaline Phosphatase Total Protein Albumin Active Medications Generic Name Dose Route Start Last Admin Trade Name Ketty PRN Reason Stop Dose Admin Acetaminophen 650 mg 09/29/16 00:49 Tylenol - PO Q6H PRN FEVER OR PAIN Amlodipine Besylate 10 mg 09/29/16 10:00 09/29/16 09:43 Norvasc - PO 10 mg DAILY BLANCA Administration Amoxicillin/Clavulanate Potassium 1 tab 09/29/16 17:30 Augmentin - 500mg Tablet PO BID@0800,1730 [facility] Aspirin 81 mg 09/29/16 10:00 09/29/16 09:42 Asa - PO 81 mg DAILY BLANCA Administration Atorvastatin Calcium 80 mg 09/29/16 22:00 Lipitor - PO HS BLANCA Docusate Sodium 100 mg 09/29/16 06:00 09/29/16 13:00 Colace - PO 100 mg TID BLANCA Administration Furosemide 20 mg 09/29/16 10:00 09/29/16 09:42 Lasix - PO 20 mg DAILY BLANCA Administration Heparin Sodium (Porcine) 5,000 unit 09/29/16 06:00 09/29/16 13:00 Heparin - SQ 5,000 unit TID BLANCA Administration Insulin Aspart 1 vial 09/29/16 07:00 09/29/16 11:24 Novolog Vial Sliding Scale - SQ Not Given ACHS [facility] Protocol Metformin HCl 500 mg 09/29/16 07:00 09/29/16 06:28 Glucophage - PO 500 mg BIDI BLANCA Administration Metoprolol Tartrate 75 mg 09/29/16 10:00 09/29/16 09:43 Lopressor - PO 75 mg BID BLANCA Administration Pantoprazole Sodium 40 mg 09/29/16 10:00 09/29/16 09:42 Protonix - PO 40 mg DAILY BLANCA Administration Potassium Chloride 40 meq 09/29/16 10:00 09/29/16 09:43 K-Dur - PO 40 meq DAILY BLANCA Administration Senna 1 tab 09/29/16 22:00 Senna - PO HS BLANCA ASSESSMENT/PLAN:
--- NOTE | 2016-09-29 16:54 | DS ---
Physical Exam: SUBJECTIVE: Patient seen and examined Patient resting in bed NAD. No acute events. Afebrile and hemodynamically stable. feels well. Deneis sob, cough, h/a, chest pain, palpitations, diaphoresis, abd pain, n/v, diarrhea or dysuria. Only complaints are mild reproducible pain of R medial ankle and R trap rohit has been there since her CABG and has since gotten better. OBJECTIVE: Vital Signs Period Temp Pulse Resp BP Sys/Roger Pulse Ox Last 24 Hr 97.8 F-98.6 F 87-117 18-20 115-122/62-73 95-96 PHYSICAL EXAM GENERAL: The patient is awake, alert, and fully oriented, in no acute distress. HEAD: Normal with no signs of trauma. EYES: PERRL, extraocular movements intact, sclera anicteric, conjunctiva clear. ENT: moist mucous membranes. NECK: Trachea midline, full range of motion, supple. LUNGS: Breath sounds equal, clear to auscultation bilaterally, mild r base crackles HEART: Regular rate and rhythm, S1, S2 without murmur, rub or gallop. ABDOMEN: Soft, nontender, nondistended, normoactive bowel sounds EXTREMITIES: 2+ pulses, warm, well-perfused, no edema. R medial malleolus mildly tender to palpation, nonedematous. R trap sore when palpated. NEUROLOGICAL: Cranial nerves II through XII grossly intact. Normal speech, gait not observed. PSYCH: Normal mood, normal affect. SKIN: Warm, dry LABS Laboratory Results - last 24 hr 09/29/16 09/29/16 09/29/16 06:00 06:00 06:00 WBC 7.4 D RBC 4.10 Hgb 11.7 Hct 34.4 MCV 84.0 MCHC 34.0 RDW 14.4 Plt Count 280 MPV 8.3 Neutrophils % 50.1 D Lymphocytes % 38.7 D Monocytes % 8.9 Eosinophils % 1.6 D Basophils % 0.7 INR 1.25 H PTT (Actin FS) 33.6 Sodium 140 Potassium 4.0 Chloride 103 Carbon Dioxide 26 Anion Gap 11 BUN 6 L D Creatinine 0.4 L Creat Clearance w eGFR > 60 POC Glucometer Random Glucose 160 H Calcium 8.8 Total Bilirubin 0.4 D AST 18 D ALT 39 Alkaline Phosphatase 148 H Total Protein 6.3 L Albumin 2.9 L 03/30/17 03/30/17 06:09 11:13 WBC RBC Hgb Hct MCV MCHC RDW Plt Count MPV Neutrophils % Lymphocytes % Monocytes % Eosinophils % Basophils % INR PTT (Actin FS) Sodium Potassium Chloride Carbon Dioxide Anion Gap BUN Creatinine Creat Clearance w eGFR POC Glucometer 164 120 Random Glucose Calcium Total Bilirubin AST ALT Alkaline Phosphatase Total Protein Albumin HOSPITAL COURSE: Date of Admission:09/28/16 Patient is a 61 yo F with PMH of HLD, HTN, DM and CAD s/p CABG who presented with sob x 2 d and mild dry cough. [place] feverish but temperature wasn't recorded. She had a CABG a month ago at [facility]. In the mean time, she had severe abdominal pain and was diagnosed with acalculous cholecystitis, undergone cholecystostomy 3 weeks ago at [facility] and elective cholecystectomy is scheduled on October,. Bowel/Bladder habit normal. Sleep/Appetite normal. In ED afebrile, mild leukocytosis, given IV Zosyn; IV Vancomycin, admitted for HAP. Evaluated by ID the next day, feeling well, symptoms resolved, afebrile, no leukocytosis. Placed on PO augmentin and discharged home. Date of Discharge: 09/29/16 Minutes to complete discharge: 51 (na) Discharge Summary Reason For Visit: PNEUMONIA Current Active Problems Pneumonia (Acute) Condition: Good - Instructions Diet, Activity, Other Instructions: You were in the hospital for lung infection. You were evaluated by Infectious Disease specialist. You are not very sick and feel well so it is ok for you to take ora antibiotic at home. Take Augmentin twice a day for 7 days. Since you do no have a primary doctor, we recommend Dr Jamil. Please follow us as soon as possible with him or other primary doctor. Resume regular follow ups with cardiology and gastroenterology. Return to hospital if symptoms resume. Estabas en el hospital por rosario infeccin pulmonar. Usted fue evaluado por el especialista en Enfermedades Infecciosas. Usted no est muy enfermo y se siente brianna por lo que est brianna para que usted tome antibitico ora en casa. [place] Augmentin dos veces al da grisel 7 nick. Ya que usted no tiene un mdico de cabecera, le recomendamos Dr Jamil. Por favor, sganos lo ms pronto posible con l u otro buster herron. Reanudar el seguimiento regular con cardiologa y gastroenterologa. Vuelva al hospital si los sntomas se reanudan. Referrals: Mickey Jamil MD [Staff Physician] - Disposition: HOME - Home Medications Comprehensive Discharge Medication List: Ambulatory Orders Aspirin [ASA -] 81 mg PO DAILY 08/24/16 Docusate Sodium [Dok] 100 mg PO TID 08/24/16 Metformin HCl 500 mg PO BID 08/24/16 Sennosides [Senna] 8.6 mg PO HS 08/24/16 Acetaminophen [Tylenol .Regular Strength -] 650 mg PO Q6H PRN #0 tablet Amlodipine Besylate [Norvasc -] 10 mg PO DAILY #30 tablet 09/11/16 Atorvastatin Ca [Lipitor] 80 mg PO HS tablet 09/11/16 Furosemide [Lasix -] 20 mg PO DAILY tablet 09/11/16 Metoprolol Tartrate [Lopressor -] 75 mg PO BID #30 tablet 09/11/16 Pantoprazole Sodium [Protonix -] 40 mg PO DAILY #30 09/11/16 Potassium Chloride [K-Dur -] 40 meq PO DAILY 09/11/16 Amox-Tr/K Cl [Augmentin 500-125mg Tablet -] 1 tab PO BID@0800,1730 #14 tablet Problem List - Problems (1) SOB (shortness of breath) Code(s): R06.02 - SHORTNESS OF BREATH This patient is new to me today: Yes Date on this admission: 09/29/16 Emergency Visit: Yes ED Registration Date: 09/28/16 Care time: The patient presented to the Emergency Department on the above date and was hospitalized for further evaluation of their emergent condition. Critical Care patient: No - Discharge Referral Referred to [facility] No
[2016-09-29] MEDS ORDERED: AMOX TR/POT CLAV 500MG/125MG TABLETS (FP) PO SCH (17:30)
--- NOTE | 2016-09-29 17:41 | PN ---
Teaching Attending Note Name of Resident: Ruth De Luna ATTENDING PHYSICIAN STATEMENT I saw and evaluated the patient. I reviewed the resident's note and discussed the case with the resident. I agree with the resident's findings and plan as documented. Patient feels better, with no acute distress. no nausea or vomiting. Vital Signs Temperature 97.8 F 09/29/16 14:22 Pulse Rate 87 09/29/16 14:22 Respiratory Rate 18 09/29/16 14:22 Blood Pressure 115/62 09/29/16 14:22 O2 Sat by Pulse Oximetry (%) 95 09/29/16 09:00 CBCD WBC 7.4 K/mm3 (4.0-10.0) D 09/29/16 06:00 RBC 4.10 M/mm3 (3.60-5.2) 09/29/16 06:00 Hgb 11.7 GM/dL (10.7-15.3) 09/29/16 06:00 Hct 34.4 % (32.4-45.2) 09/29/16 06:00 MCV 84.0 fl (80-96) 09/29/16 06:00 MCHC 34.0 g/dl (32.0-36.0) 09/29/16 06:00 RDW 14.4 % (11.6-15.6) 09/29/16 06:00 Plt Count 280 K/MM3 (134-434) 09/29/16 06:00 MPV 8.3 fl (7.5-11.1) 09/29/16 06:00 CMP Sodium 140 mmol/L (136-145) 09/29/16 06:00 Potassium 4.0 mmol/L (3.5-5.1) 09/29/16 06:00 Chloride 103 mmol/L (98-107) 09/29/16 06:00 Carbon Dioxide 26 mmol/L (21-32) 09/29/16 06:00 Anion Gap 11 (8-16) 09/29/16 06:00 BUN 6 mg/dL (7-18) L D 09/29/16 06:00 Creatinine 0.4 mg/dL (0.55-1.02) L 09/29/16 06:00 Creat Clearance w eGFR > 60 (>60) 09/29/16 06:00 Random Glucose 160 mg/dL (74-106) H 09/29/16 06:00 Calcium 8.8 mg/dL (8.5-10.1) 09/29/16 06:00 Total Bilirubin 0.4 mg/dL (0.2-1.0) D 09/29/16 06:00 AST 18 U/L (15-37) D 09/29/16 06:00 ALT 39 U/L (12-78) 09/29/16 06:00 Alkaline Phosphatase 148 U/L (45-117) H 09/29/16 06:00 Total Protein 6.3 g/dl (6.4-8.2) L 09/29/16 06:00 Albumin 2.9 g/dl (3.4-5.0) L 09/29/16 06:00 CARDIAC ENZYMES Creatine Kinase 108 IU/L (26-192) 09/28/16 21:39 Troponin I < 0.02 ng/ml (0.00-0.05) 09/28/16 21:39 Current Medications Generic Name Dose Route Start Last Admin Trade Name Ketty PRN Reason Stop Dose Admin Acetaminophen 650 mg 09/29/16 00:49 Tylenol - PO Q6H PRN FEVER OR PAIN Amlodipine Besylate 10 mg 09/29/16 10:00 09/29/16 09:43 Norvasc - PO 10 mg DAILY [facility] Administration Amoxicillin/Clavulanate Potassium 1 tab 09/29/16 17:30 Augmentin - 500mg Tablet PO BID@0800,1730 [facility] Aspirin 81 mg 09/29/16 10:00 09/29/16 09:42 Asa - PO 81 mg DAILY BLANCA Administration Atorvastatin Calcium 80 mg 09/29/16 22:00 Lipitor - PO HS BLANCA Docusate Sodium 100 mg 09/29/16 06:00 09/29/16 13:00 Colace - PO 100 mg TID BLANCA Administration Furosemide 20 mg 09/29/16 10:00 09/29/16 09:42 Lasix - PO 20 mg DAILY [facility] Administration Heparin Sodium (Porcine) 5,000 unit 09/29/16 06:00 09/29/16 13:00 Heparin - SQ 5,000 unit TID BLANCA Administration Insulin Aspart 1 vial 09/29/16 07:00 09/29/16 11:24 Novolog Vial Sliding Scale - SQ Not Given ACHS [facility] Protocol Metformin HCl 500 mg 09/29/16 07:00 09/29/16 06:28 Glucophage - PO 500 mg BIDI BLANCA Administration Metoprolol Tartrate 75 mg 09/29/16 10:00 09/29/16 09:43 Lopressor - PO 75 mg BID BLANCA Administration Pantoprazole Sodium 40 mg 09/29/16 10:00 09/29/16 09:42 Protonix - PO 40 mg DAILY BLANCA Administration Potassium Chloride 40 meq 09/29/16 10:00 09/29/16 09:43 K-Dur - PO 40 meq DAILY BLANCA Administration Senna 1 tab 09/29/16 22:00 Senna - PO HS [facility] Home Medications Medication Instructions Recorded Aspirin [ASA -] 81 mg PO DAILY 08/24/16 Docusate Sodium [Dok] 100 mg PO TID 08/24/16 Metformin HCl 500 mg PO BID 08/24/16 Sennosides [Senna] 8.6 mg PO HS 08/24/16 Acetaminophen [Tylenol .Regular 650 mg PO Q6H PRN #0 tablet 09/11/16 Strength -] Amlodipine Besylate [Norvasc -] 10 mg PO DAILY #30 tablet 09/11/16 Atorvastatin Ca [Lipitor] 80 mg PO HS tablet 09/11/16 Furosemide [Lasix -] 20 mg PO DAILY tablet 09/11/16 Metoprolol Tartrate [Lopressor -] 75 mg PO BID #30 tablet 09/11/16 Pantoprazole Sodium [Protonix -] 40 mg PO DAILY #30 09/11/16 Potassium Chloride [K-Dur -] 40 meq PO DAILY 09/11/16 Amox-Tr/K Cl [Augmentin 500-125mg 1 tab PO BID@0800,1730 #14 tablet 09/29/16 Tablet -] ASSESSMENT AND PLAN: 61 yo F with recent Hx of hospitalization that presents to ED complaining of pleuritic chest pain. # Acute Pleuritic chest pain with mild leukocytosis improved , was given Vanco.Zosyn as per ID , patient was placed on po Augmentin , # Possible left lower lobe pneumonia on the CXR will discharge the patient on po Augmentin x 7 days; no fever for 24 hours # Hx of recent acalculous cholecystitis s/p cholecystostomy. follow up with surgery follow up to plan for elective cholecystectomy # Hx of coronary artery disease and recent CABG continue home meds. continue current medication regimen, metoprolol, aspirin, statins, lasix # Diabetes continue home meds. # HTN controlled Continue home meds Discharge patient home on pO antibiotic Augmentin as per ID for 7 days
[2016-09-29 19:26] VITALS: BP 126/67; PULSE 105; TEMP 98.1
[2016-09-29] MEDS ORDERED: SENNOSIDES 8.6MG TABLET (FP) PO SCH (22:00)
[2016-09-29] MEDS ORDERED: ATORVASTATIN CA 80 MG TABLET (FP) PO SCH (22:00)
== END 2016-09-29 19:54 | disposition home health service (06) | DRG 139 ==
LOC: JER 19:26 → JERBED 23:25 → UNDOADMIN 23:57 → JERBED 23:57 → J5S 09-29 02:48
PROVIDERS: ADMIT Internal Medicine; ATTEND Internal Medicine
DX: J18.9 Pneumonia, unspecified organism (principal); I10 Essential (primary) hypertension; E78.5 Hyperlipidemia, unspecified; E11.9 Type 2 diabetes mellitus without complications; Y95 Nosocomial condition; I25.10 Atherosclerotic heart disease of native coronary artery without angina pectoris; Z95.1 Presence of aortocoronary bypass graft; K81.9 Cholecystitis, unspecified; R07.1 Chest pain on breathing; J98.11 Atelectasis; Z79.84 Long term (current) use of oral hypoglycemic drugs
CPT/HCPCS: 36415; 71010-TC; 80053; 81003; 81015; 82550; 82803; 83605; 84484; 85025; 85610; 85730; 86850; 86900; 86901; 87040; 87086; 87254; 87804; 93005; 93010; 93971-TC; 94010; 99285-25; J1644

== ENCOUNTER 2016-10-23 19:32 | Inpatient (IN) | payer OTHER ==
[2016-10-23 19:38] VITALS: BMI 27.3
--- NOTE | 2016-10-23 19:50 | PDOC ---
History of Present Illness - General History Source: Patient, Family Exam Limitations: No Limitations - History of Present Illness Initial Comments: 10/23/16 20:25 The patient is a 61 year old female, with a significant past medical history of HTN, HLD, CAD s/p quadruple bypass, diabetes and high potassium, who presents to the emergency department with chest pain since this morning. She describes the chest pain as ranging from mild to moderate, with radiation up to her throat. She denies any modifying factors. She states that she has been taking her blood pressure medications. She states that she recently had a quadruple bypass surgery on 08/2016. The patient currently has a gall bladder tube that is draining. The son states that the doctors did not want to operate on the gallbladder due to the recent cardiac surgery. The patient denies shortness of breath, headache and dizziness. Denies fever, chills, nausea, vomit, diarrhea and constipation. Denies dysuria, frequency, urgency and hematuria. Allergies: None Past surgical history: Quadrupple bypass (08/08/2016) Social history: No alcohol, tobacco or drug use reported <Abebe Champion - Last Filed: 10/23/16 20:27> <Doris Justice - Last Filed: 10/24/16 06:15> - General Chief Complaint: Chest Pain Stated Complaint: CHEST PAIN/PALPITATIONS Time Seen by Provider: 10/23/16 19:49 Past History <Abebe Champion - Last Filed: 10/23/16 20:27> - Past Medical History Asthma: Yes Cardiac Disorders: Yes Diabetes: Yes HTN: Yes Hypercholesterolemia: Yes - Surgical History Cardiac Surgery: Yes (MIS 08/2016) Cholecystectomy: (drain to GB) - Psycho/Social/Smoking Cessation Hx Anxiety: No Suicidal Ideation: No Smoking History: Never smoked Have you smoked in the past 12 months: No Hx Alcohol Use: No Drug/Substance Use Hx: No Substance Use Type: None Hx Substance Use Treatment: No <Doris Justice - Last Filed: 10/24/16 06:15> - Past Medical History Allergies/Adverse Reactions: Allergies Allergy/AdvReac Type Severity Reaction Status Date / Time aspirin Allergy Hives Verified 10/23/16 19:39 Home Medications: Ambulatory Orders Aspirin [ASA -] 81 mg PO DAILY 08/24/16 Docusate Sodium [Dok] 100 mg PO TID 08/24/16 Metformin HCl 500 mg PO BID 08/24/16 Sennosides [Senna] 8.6 mg PO HS 08/24/16 Acetaminophen [Tylenol .Regular Strength -] 650 mg PO Q6H PRN #0 tablet Amlodipine Besylate [Norvasc -] 10 mg PO DAILY #30 tablet 09/11/16 Atorvastatin Ca [Lipitor] 80 mg PO HS tablet 09/11/16 Furosemide [Lasix -] 20 mg PO DAILY tablet 09/11/16 Metoprolol Tartrate [Lopressor -] 75 mg PO BID #30 tablet 09/11/16 Pantoprazole Sodium [Protonix -] 40 mg PO DAILY #30 09/11/16 Potassium Chloride [K-Dur -] 40 meq PO DAILY 09/11/16 Review of Systems - Review of Systems Able to Perform ROS?: Yes Comments:: 10/23/16 20:25 GENERAL/CONSTITUTIONAL: No fever or chills. No weakness. HEAD, EYES, EARS, NOSE AND THROAT: No change in vision. No ear pain or discharge. No sore throat. CARDIOVASCULAR: +Chest pain. No shortness of breath RESPIRATORY: No cough, wheezing, or hemoptysis. GASTROINTESTINAL: No nausea, vomiting, diarrhea or constipation. GENITOURINARY: No dysuria, frequency, or change in urination. MUSCULOSKELETAL: No joint or muscle swelling or pain. No neck or back pain. SKIN: No rash NEUROLOGIC: No headache, vertigo, loss of consciousness, or change in strength/ sensation. ENDOCRINE: No increased thirst. No abnormal weight change HEMATOLOGIC/LYMPHATIC: No anemia, easy bleeding, or history of blood clots. ALLERGIC/IMMUNOLOGIC: No hives or skin allergy. <Abebe Champion - Last Filed: 10/23/16 20:27> *Physical Exam - Vital Signs Last Vital Signs Temp Pulse Resp BP Pulse Ox 98 F 84 24 149/82 100 10/23/16 19:37 10/23/16 20:17 10/23/16 20:17 10/23/16 20:17 10/23/16 20:17 - Physical Exam Comments: 10/23/16 20:26 GENERAL: Awake, alert, and fully oriented, in no acute distress HEAD: No signs of trauma, normocephalic, atraumatic EYES: PERRLA, EOMI, sclera anicteric, conjunctiva clear ENT: Auricles normal inspection, hearing grossly normal, nares patent, oropharynx clear without exudates. Moist mucosa NECK: Normal ROM, supple, no lymphadenopathy, JVD, or masses LUNGS: No distress, speaks full sentences, clear to auscultation bilaterally HEART: +Tachycardic, normal S1 and S2, no murmurs, rubs or gallops, peripheral pulses normal and equal bilaterally. ABDOMEN: +Gallbladder drain which is darining gallbladder yellow fluid. Soft, nontender, normoactive bowel sounds. No guarding, no rebound. No masses. EXTREMITIES: Normal inspection, Normal range of motion, no edema. No clubbing or cyanosis. NEUROLOGICAL: Cranial nerves II through XII grossly intact. Normal speech, normal gait, no focal sensorimotor deficits SKIN: Warm, Dry, normal turgor, no rashes or lesions noted. <Abebe Champion - Last Filed: 10/23/16 20:27> - Vital Signs Last Vital Signs Temp Pulse Resp BP Pulse Ox 98 F 98 H 28 H 163/83 100 10/23/16 19:37 10/23/16 19:37 10/23/16 19:37 10/23/16 19:37 10/23/16 19:37 <Doris Justice - Last Filed: 10/24/16 06:15> ED Treatment Course - LABORATORY CBC & Chemistry Diagram: 10/23/16 20:00 10/23/16 20:00 - ADDITIONAL ORDERS Additional order review: Laboratory Results 10/23/16 20:00 INR 0.98 10/23/16 20:00 RBC 5.03 D MCV 83.7 MCHC 33.7 RDW 15.4 MPV 7.9 Neutrophils % Y Lymphocytes % Y - Medications Given in the ED: ED Medications Discontinued Medications Generic Name Dose Route Start Last Admin Trade Name Freq PRN Reason Stop Dose Admin Metoprolol Tartrate 5 mg 10/23/16 20:07 10/23/16 20:14 Lopressor Injection - IVPUSH 10/23/16 20:08 5 mg ONCE ONE Administration Metoprolol Tartrate 50 mg 10/23/16 20:15 10/23/16 20:15 Lopressor - PO 10/23/16 20:16 50 mg ONCE ONE Administration Morphine Sulfate 2 mg 10/23/16 20:07 10/23/16 20:14 Morphine Injection - IVPUSH 10/23/16 20:08 2 mg ONCE ONE Administration <Abebe Champion - Last Filed: 10/23/16 20:27> - LABORATORY CBC & Chemistry Diagram: 10/23/16 20:00 10/23/16 20:00 - RADIOLOGY Radiology Studies Ordered: Category Date Time Status CHEST X-RAY PORTABLE* [RAD] Stat Radiology 10/23/16 19:40 Taken <Doris Justice - Last Filed: 10/24/16 06:15> Medical Decision Making - Medical Decision Making 10/23/16 20:11 EKG: same pattern as old; CXR same as old from 10/24/16 06:07 Pt comes with chest pain. Her BP is elevated. SHe has a GB drain in place that is draining bile. Pt ate rice beans and carne, but she has no RUQ pain and no flank pain. She is afebrile. BP is 200s systolic on arrival. She received 2SLNTG by me and 1 inch nitropaste; she also received her beta mavis and ca channel mavis as she is tachycardic. SHe also received morphine and NSS bolus. She is feeling better and her vitals are improving. She will be admitted to telelmetry unit. <Doris Justice - Last Filed: 10/24/16 06:15> *DC/Admit/Observation/Transfer - Attestations Scribe Attestion: 10/23/16 20:27 Documentation prepared by Abebe Champion, acting as biomedical engineering aide for Doris Justice MD <Abebe Champion - Last Filed: 10/23/16 20:27> - Discharge Dispostion Admit: Yes <Doris Justice - Last Filed: 10/24/16 06:15> Diagnosis at time of Disposition: Chest pain
[2016-10-23] MEDS ORDERED: METOPROLOL TARTRATE 5 MG/5 ML VIAL ONE (20:05)
[2016-10-23] MEDS ORDERED: METOPROLOL TARTRATE 5 MG/5 ML VIAL IVPUSH ONE (20:07)
[2016-10-23] MEDS ORDERED: morphine CARPU-JECT 2 MG/1 ML DISP.SYRIN IVPUSH ONE (20:07)
[2016-10-23] MEDS ORDERED: morphine CARPU-JECT 2 MG/1 ML DISP.SYRIN ONE (20:07)
[2016-10-23 20:08] LABS: MCH 28.2 pg (25.7-33.7); MCHC 33.7 g/dl (32.0-36.0); MEAN CELL VOLUME 83.7 fl (80-96); MEAN PLT VOLUME 7.9 fl (7.5-11.1); PLATELET COUNT 298 K/MM3 (134-434); RDW 15.4 % (11.6-15.6); WHITE BLOOD COUNT 8.6 K/mm3 (4.0-10.0)
[2016-10-23] MEDS ORDERED: METOPROLOL TARTRATE 50 MG TABLET (FP) PO ONE (20:15)
[2016-10-23 20:20] LABS: INR 0.98 (0.82-1.09); PROTHROMBIN TIME (PATIENT) 10.8 SEC (9.98-11.88)
[2016-10-23] MEDS ORDERED: SODIUM CHLORIDE 0.9% 500 ML INFUS.BAG IV ONE (20:43)
[2016-10-23] MEDS ORDERED: METOPROLOL TARTRATE 50 MG TABLET (FP) ONE (20:55)
[2016-10-23 21:01] LABS: PLATELET ESTIMATE ADEQUATE (NORMAL)
[2016-10-23 21:05] LABS: ALBUMIN 4.2 g/dl (3.4-5.0); ANION GAP 12 (8-16); BILIRUBIN,TOTAL 0.3 mg/dL (0.2-1.0); CALCIUM 9.6 mg/dL (8.5-10.1); CO2 24 mmol/L (21-32); COCKROFT - GAULT 99.9515; CREATININE 0.6 mg/dL (0.55-1.02); GLUCOSE,RANDOM 159 mg/dL (74-106); SGOT/AST 17 U/L (15-37); SGPT/ALT 36 U/L (12-78); TOT PROT 7.8 g/dl (6.4-8.2)
[2016-10-23 21:08] LABS: ALK PHOS 191 U/L (45-117); TROPONIN I 0.03 ng/ml (0.00-0.05)
[2016-10-23] MEDS ORDERED: CLOPIDOGREL BISULFATE 300 MG TABLET PO ONE (21:31)
[2016-10-23] MEDS ORDERED: CLOPIDOGREL BISULFATE 300 MG TABLET ONE (21:34)
[2016-10-23] MEDS ORDERED: morphine CARPU-JECT 2 MG/1 ML DISP.SYRIN IVPUSH PRN (23:18)
--- NOTE | 2016-10-23 23:18 | HP ---
<Aletha Rodriguez - Last Filed: 10/23/16 23:29> CHIEF COMPLAINT: Chest pain x1 day PCP: HISTORY OF PRESENT ILLNESS: 61 yo F presents to ED complaining of 1 day Hx of midsternal chest pain, 8/10 intensity radiating to her neck that is pressure like, constant and exacerbated by deep inspiration. Patient has a recent Hx of coronary artery bypass graft in August 2016 with an ongoing sternal pain. She had recent hospitalization for LLL pneumonia. Pain partially improved after administration of IV morphine in ED. Recent Travel: Denies PAST MEDICAL HISTORY: HTN, HLD, diabetes, CAD, acute cholecystitis, high potassium and LLL pneumonia. PAST SURGICAL HISTORY: Coronary artery bypass graft in August 2016 Social History: Good social support Smoking: denies Alcohol: denies Drugs: denies Family History: [place] Allergies aspirin Allergy (Verified 10/23/16 19:39) Hives PT STATES IF SHE TAKES 325MG DEVELOPS FACIAL SWELLING,RASH AND HIVES. But she takes ASA 81mg everyday without any allergy. HOME MEDICATIONS: Home Medications Medication Instructions Recorded Aspirin [ASA -] 81 mg PO DAILY 08/24/16 Docusate Sodium [Dok] 100 mg PO TID 08/24/16 Metformin HCl 500 mg PO BID 08/24/16 Sennosides [Senna] 8.6 mg PO HS 08/24/16 Acetaminophen [Tylenol .Regular 650 mg PO Q6H PRN #0 tablet 09/11/16 Strength -] Amlodipine Besylate [Norvasc -] 10 mg PO DAILY #30 tablet 09/11/16 Atorvastatin Ca [Lipitor] 80 mg PO HS tablet 09/11/16 Furosemide [Lasix -] 20 mg PO DAILY tablet 09/11/16 Metoprolol Tartrate [Lopressor -] 75 mg PO BID #30 tablet 09/11/16 Pantoprazole Sodium [Protonix -] 40 mg PO DAILY #30 09/11/16 Potassium Chloride [K-Dur -] 40 meq PO DAILY 09/11/16 REVIEW OF SYSTEMS CONSTITUTIONAL: Absent: fever, chills, diaphoresis, generalized weakness, malaise, loss of appetite, weight change HEENT: Absent: rhinorrhea, nasal congestion, throat pain, throat swelling, difficulty swallowing, mouth swelling, ear pain, eye pain, visual changes CARDIOVASCULAR: + chest pain Absent: syncope, palpitations, irregular heart rate, lightheadedness, peripheral edema RESPIRATORY: + exertional dyspnea Absent: cough, shortness of breath, orthopnea, wheezing, stridor, hemoptysis GASTROINTESTINAL: + recent Hx of cholecystitis with placement of percutaneous drain. No output from RUQ drain for over 3 weeks. Absent: abdominal pain, abdominal distension, nausea, vomiting, diarrhea, constipation, melena, hematochezia GENITOURINARY: Absent: dysuria, frequency, urgency, hesitancy, hematuria, flank pain, genital pain MUSCULOSKELETAL: Absent: myalgia, arthralgia, joint swelling, back pain, neck pain SKIN: Absent: rash, itching, pallor HEMATOLOGIC/IMMUNOLOGIC: Absent: easy bleeding, easy bruising, lymphadenopathy, frequent infections ENDOCRINE: Absent: unexplained weight gain, unexplained weight loss, heat intolerance, cold intolerance NEUROLOGIC: Absent: headache, focal weakness or paresthesias, dizziness, unsteady gait, seizure, mental status changes, bladder or bowel incontinence PSYCHIATRIC: Absent: anxiety, depression, suicidal or homicidal ideation, hallucinations. PHYSICAL EXAMINATION GENERAL: Awake, alert, and fully oriented, in no acute distress. HEAD: Normal with no signs of trauma. EYES: Pupils equal, round and reactive to light, extraocular movements intact, sclera anicteric, conjunctiva clear. No lid lag. EARS, NOSE, THROAT: Ears normal, nares patent, oropharynx clear without exudates. Moist mucous membranes. NECK: Normal range of motion, supple without lymphadenopathy, JVD, or masses. LUNGS: Breath sounds equal, clear to auscultation bilaterally. No wheezes, and no crackles. No accessory muscle use. HEART: Regular rate and rhythm, normal S1 and S2 without murmur, rub or gallop. Positive reproducible chest wall tenderness. Surgical scar post CABG, healed well. ABDOMEN: Soft, nontender, not distended, normoactive bowel sounds, no guarding, no rebound, no masses. No hepatomegaly or splenomegaly. RUQ drain in place, no output, no erythema. MUSCULOSKELETAL: Normal range of motion at all joints. No bony deformities or tenderness. No CVA tenderness. UPPER EXTREMITIES: 2+ pulses, warm, well-perfused. No cyanosis. No clubbing. No peripheral edema. LOWER EXTREMITIES: 2+ pulses, warm, well-perfused. No calf tenderness. No peripheral edema. NEUROLOGICAL: Cranial nerves II-XII intact. Normal speech. Normal gait. PSYCHIATRIC: Cooperative. Good eye contact. Appropriate mood and affect. SKIN: Warm, dry, normal turgor, no rashes or lesions noted, normal capillary refill. ASSESSMENT/PLAN: 61 yo F with recent Hx of CABG and multiple risk factors for CAD that presents with atypical chest pain. 1.) Chest pain partially resolved with administration of morphine, however, is now returning. Most likely musculoskeletal, however, cardiac ischemia can not completely be excluded. -Continue Plavix -Provide pain control with IV morphine -Trend cardiac enzymes -Cardiology evaluation -Continue with Aspirin, Lipitor, Metoprolol 2.) Hx of Cholecystitis shortly post CABG. Patient was not a candidate for laparoscopic cholecystectomy under anesthesia at that time and cholecystostomy was performed with placement of percutaneous drain. Drain has been there seen August and no output noted over the past 3 weeks. She is awaiting for cardiac clearance to undergo laparoscopic cholecystectomy. It is not clear if drain remains in place. -Surgical evaluation -Will await cardiology recommendation regarding clearance 3.) HTN uncontrolled upon presentation, however, improved after appropriate pain control. -Continue current medications -Monitor BP and adjust medications accordingly 4.) Diabetes -Discontinue metformin for now -Monitor blood glucose AC and HS -Start insulin sliding scale DVT ppx -Heparin sc Telemetry Documentation prepared by Aletha Rodriguez acting as pediatric medical assistant for Azar Reyes M.D. <Azar Reyes - Last Filed: 10/23/16 23:32> Visit type - Emergency Visit Emergency Visit: Yes ED Registration Date: 10/23/16 Care time: The patient presented to the Emergency Department on the above date and was hospitalized for further evaluation of their emergent condition. - New Patient This patient is new to me today: Yes Date on this admission: 10/23/16 - Critical Care Critical Care patient: No
[2016-10-23] MEDS: HEPARIN NA (PORCINE) 5,000 UNITS/ML 1ML VIAL SQ SCH (23:55)
[2016-10-24] MEDS ORDERED: HEPARIN NA (PORCINE) 5,000 UNITS/ML 1ML VIAL ONE ×2 (00:34→07:04)
[2016-10-24] MEDS ORDERED: NITROGLYCERIN 2% OINTMENT - 1GM PACKET TD ONE (06:13)
[2016-10-24] MEDS ORDERED: NITROGLYCERIN SUBLINGUAL 1/150 0.4 MG TAB SL ONE (06:13)
[2016-10-24] MEDS: HEPARIN NA (PORCINE) 5,000 UNITS/ML 1ML VIAL SQ SCH (07:09)
[2016-10-24] MEDS: DOCUSATE SODIUM 100 MG CAPSULE (FP) PO SCH ×3 (07:09→22:26)
[2016-10-24] MEDS: INSULIN SLIDING SCALE (NOVOLOG) 1 VIAL SQ SCH ×4 (07:20→22:21)
[2016-10-24 07:34] LABS: TROPONIN I 0.64 ng/ml (0.00-0.05)
[2016-10-24] MEDS ORDERED: HEPARIN NA (PORCINE) 5,000 UNITS/ML 1ML VIAL IVPUSH PRN ×4 (08:29→15:52)
[2016-10-24] MEDS ORDERED: ENOXAPARIN NA (PORCINE) 60 MG/0.6 ML DISP.SYRIN SQ SCH (08:30)
[2016-10-24] MEDS ORDERED: HEPARIN INFUSION - 500 ML IVPB SCH (08:30)
[2016-10-24] MEDS ORDERED: HEPARIN INFUSION - 500 ML IVPB ONE (08:47)
--- NOTE | 2016-10-24 09:16 | CON.CARD ---
Consult Consult Specialty:: Cardiology Referred by:: ER Reason for Consultation:: Chest pain, nstemi - History of Present Illness Chief Complaint: chest pain History of Present Illness: 61 year old woman with a history of HTN, HLD, CAD NSTEMI 08/19 underwent CABG, followed by admission for cholecystitis s/p cholecystostomy due to recent cabg, then admitted for possible PNA 08/2016, now admitted with chest pain. Pt seen and examined in the ER in nad. currently asymptomatic. states no further chest pain since last night. described it as pressure like radiating to her throat, no associated sob, palpitations, diaphoresis. - History Source History Provided By: Patient, Medical Record Limitations to Obtaining History: Language Barrier - Past Medical History Cardio/Vascular: Yes: CAD, HTN, Hyperlipdemia Gastrointestinal: Yes: Other (Denies history of RUQ pain or gallstone disease) Hepatobiliary: Yes: Cholecystitis - Past Surgical History Past Surgical History: Yes: CABG - Alcohol/Substance Use Hx Alcohol Use: No - Smoking History Smoking history: Never smoked Have you smoked in the past 12 months: No - Social History ADL: Independent History of Recent Travel: No Home Medications - Allergies Allergies/Adverse Reactions: Allergies Allergy/AdvReac Type Severity Reaction Status Date / Time aspirin Allergy Hives Verified 10/23/16 19:39 - Home Medications Home Medications: Ambulatory Orders Aspirin [ASA -] 81 mg PO DAILY 08/24/16 Docusate Sodium [Dok] 100 mg PO TID 08/24/16 Metformin HCl 500 mg PO BID 08/24/16 Sennosides [Senna] 8.6 mg PO HS 08/24/16 Acetaminophen [Tylenol .Regular Strength -] 650 mg PO Q6H PRN #0 tablet Amlodipine Besylate [Norvasc -] 10 mg PO DAILY #30 tablet 09/11/16 Atorvastatin Ca [Lipitor] 80 mg PO HS tablet 09/11/16 Furosemide [Lasix -] 20 mg PO DAILY tablet 09/11/16 Metoprolol Tartrate [Lopressor -] 75 mg PO BID #30 tablet 09/11/16 Pantoprazole Sodium [Protonix -] 40 mg PO DAILY #30 09/11/16 Potassium Chloride [K-Dur -] 40 meq PO DAILY 09/11/16 Family Disease History - Family Disease History Family Disease History: Diabetes: Mother (alive - DM in several sibs), Other: Father ( in MVA) Review of Systems - Review of Systems Constitutional: denies: No Symptoms, Chills, Diaphoresis, Fever, Lethargy, Loss of Appetite, Malaise, Night Sweats, Unintentional Wgt. Loss, Weakness, Other Eyes: denies: No Symptoms, Blind Spots, Blurred Vision, Double Vision, Eye Pain , Floaters, Photophobia, Recent Change in Vision, Other HENT: denies: No Symptoms, Difficult Swallowing, Ear Discharge, Ear Pain, Epistaxis, Gingival Bleeding, Hearing Loss, Mouth Swelling, Nasal Congestion, Ocular Prosthesis, Throat Pain, Toothache, Ringing in Ears, Other Neck: denies: No Symptoms, Decreased ROM, Lumps, Pain on Movement, Stiffness, Swollen Glands, Tenderness, Other Cardiovascular: denies: No Symptoms, Chest Pain, Edema, Palpitations, Shortness of Breath, Other Respiratory: denies: No Symptoms, Cough, Exercise Intolerance, Hemoptysis, Orthopnea, PND, Snoring, SOB, SOB on Exertion, Wheezing, Other Gastrointestinal: reports: Abdominal Pain. denies: No Symptoms, Bloating, Constipation, Diarrhea, Dysphagia, Indigestion, Melena, Nausea, Rectal Bleeding , Vomiting, Vomiting Blood, Other Genitourinary: denies: No Symptoms, Burning, Discharge, Dysuria, Flank Pain, Frequency, Hematuria, Incontinence, Lesions, Menses, Pain, Testicular Mass, Testicular Pain, Testicular Swelling, Urgency, Vaginal Bleeding, Other Breasts: denies: No Symptoms Reported, See HPI, Breast Implants, Discharge from Nipple, Lumps, Pain, Skin Changes, Other Musculoskeletal: denies: No Symptoms, Back Pain, Crepitus, Decreased ROM, Extremity Pain, Joint Pain, Joint Swelling, Muscle Pain, Muscle Cramps, Muscle Weakness, Other Integumentary: denies: No Symptoms, Blister, Bruising, Change in Color, Eczema, Erythema, Incision, Lesions, Lump, Pallor, Pruritis, Rash, Wound, Other Neurological: denies: No Symptoms, Change in LOC, Change in Speech, Confusion, Dizziness, Headache, Incoordination, Numbness, Parasthesia, Pre-Existing Deficit , Seizure, Syncope, Tremors, Unsteady Gait, Weakness, Other Endocrine: denies: No Symptoms, Excessive Sweating, Flushing, Increased Hunger, Increased Thirst, Intolerance to Cold, Intolerance to Heat, Unexplained Weight Gain, Unexplained Weight Loss, Other Hematology/Lymphatic: denies: No Symptoms, Easily Bruised, Excessive Bleeding, Swollen Glands, Other Psychiatric: denies: No Symptoms, Altered Sleep Pattern, Anxiety, Depression, Hallucinations, Panic, Paranoia, Suicidal, Other - Risk Factors Known Risk Factors: Yes: Hypercholesterolemia, Hypertension Vital Signs: Vital Signs Temperature 98.0 F 10/24/16 07:44 Pulse Rate 92 H 10/24/16 07:44 Respiratory Rate 18 10/24/16 07:44 Blood Pressure 159/83 10/24/16 07:44 O2 Sat by Pulse Oximetry (%) 100 10/24/16 07:44 Constitutional: Yes: No Distress, Calm, Obese Eyes: Yes: WNL, Conjunctiva Clear, EOM Intact, PERRL HENT: Yes: WNL, Atraumatic, Normocephalic Neck: Yes: WNL, Supple, Trachea Midline Respiratory: Yes: WNL, Regular, CTA Bilaterally. No: Rales, Rhonchi, Wheezes Gastrointestinal: Yes: Normal Bowel Sounds, Soft, Tenderness, Other ( cholecystostomy drain in place). No: Distention Renal/: Yes: WNL Cardiovascular: Yes: Regular Rate and Rhythm. No: Bradycardia, Tachycardia, Pulse Irregular, Gallop, Rub, Varicosities JVD: No Carotid Bruit: No PMI: Non-Displaced Heart Sounds: Yes: S1, S2. No: Split S2, S3, S4, Clicks, Gallop, Rub, Bruit Murmur: No: Systolic Murmur, Diastolic Murmur Musculoskeletal: Yes: WNL Extremities: Yes: WNL Edema: No Peripheral Pulses WNL: Yes Integumentary: Yes: WNL Neurological: Yes: Alert, Oriented Psychiatric: Yes: Alert, Oriented - Other Data Labs, Other Data: INR, PTT INR 0.98 (0.82-1.09) 10/23/16 20:00 Troponin, BNP 10/24/16 06:00 Troponin I 0.64 H* B-Natriuretic Peptide 568.39 H Troponin, BNP 10/24/16 06:00 Troponin I 0.64 H* B-Natriuretic Peptide 568.39 H ekg-nsr 90bpm, nonspecific st abnl, possible interior infarct, poor R progression Echo: Pending, Report Reviewed Prior Cardiac Procedures: CABG, Cardiac Catheterization Imaging - Results Chest X-ray: Report Reviewed, Image Reviewed EKG: Report Reviewed, Image Reviewed Other: Report Reviewed, Image Reviewed Problem List - Problems (1) Chest pain Code(s): R07.9 - CHEST PAIN, UNSPECIFIED (2) Abnormal EKG Code(s): R94.31 - ABNORMAL ELECTROCARDIOGRAM [ECG] [EKG] (3) HLD (hyperlipidemia) Code(s): E78.5 - HYPERLIPIDEMIA, UNSPECIFIED (4) HTN (hypertension) Code(s): I10 - ESSENTIAL (PRIMARY) HYPERTENSION (5) NSTEMI (non-ST elevated myocardial infarction) Code(s): I21.4 - NON-ST ELEVATION (NSTEMI) MYOCARDIAL INFARCTION (6) SOB (shortness of breath) Code(s): R06.02 - SHORTNESS OF BREATH (7) CAD (coronary artery disease) Code(s): I25.10 - ATHSCL HEART DISEASE OF [place] CORONARY ARTERY W/O ANG PCTRS (8) Hx of CABG Code(s): Z95.1 - PRESENCE OF AORTOCORONARY BYPASS GRAFT Assessment/Plan 61 year old woman with a history of HTN, HLD, CAD NSTEMI 08/19 underwent CABG, followed by admission for cholecystitis s/p cholecystostomy due to recent cabg, then admitted for possible PNA 08/2016, now admitted with chest pain. Chest pain-atypical Troponin trended slightly up with normal CK level unlikely type I NC start heparin gtt trend cardiac enzymes check echo to re-evaluate LV function Will review report from cardiac cath and CABG Cont home medical regimen Clarify aspirin allergy Of note pt has not yet followed up in the office since her CABG Cholecystitis -Consider GI/Surgery follow up HTN-slightly above goal -resume home medical regimen and re-evaluate HLD -cont statin
[2016-10-24 09:42] LABS: BASOPHIL 0.9 % (0-2.0); EOSINOPHIL 2.1 % (0-4.5); MCH 28.3 pg (25.7-33.7); MCHC 33.8 g/dl (32.0-36.0); MEAN CELL VOLUME 83.8 fl (80-96); MEAN PLT VOLUME 7.9 fl (7.5-11.1); NEUTROPHILS 47.1 % (42.8-82.8); PLATELET COUNT 294 K/MM3 (134-434); RDW 15.1 % (11.6-15.6); WHITE BLOOD COUNT 6.5 K/mm3 (4.0-10.0)
[2016-10-24 10:00] LABS: ALBUMIN 3.8 g/dl (3.4-5.0); ANION GAP 12 (8-16); CALCIUM 9.4 mg/dL (8.5-10.1); CO2 22 mmol/L (21-32); COCKROFT - GAULT 119.9435; CREATININE 0.5 mg/dL (0.55-1.02); GLUCOSE,RANDOM 107 mg/dL (74-106); SGOT/AST 24 U/L (15-37); SGPT/ALT 33 U/L (12-78)
[2016-10-24] MEDS ORDERED: PANTOPRAZOLE 20 MG TABLET (FP) PO SCH (10:00)
[2016-10-24] MEDS ORDERED: METOPROLOL TARTRATE 50 MG TABLET (FP) PO SCH (10:00)
[2016-10-24 10:01] LABS: ALK PHOS 171 U/L (45-117); BILIRUBIN,TOTAL 0.3 mg/dL (0.2-1.0); TOT PROT 6.9 g/dl (6.4-8.2)
[2016-10-24] MEDS: ASPIRIN 81 MG CHEWABLE TABLETS PO SCH (10:35)
[2016-10-24] MEDS: RANITIDINE HCL 150 MG TABLET (FP) PO SCH (10:36)
[2016-10-24] MEDS: amLODIPine BESYLATE 10 MG TABLET (FP) PO SCH (10:36)
[2016-10-24] MEDS: FUROSEMIDE 20 MG TABLET (FP) PO SCH (10:36)
[2016-10-24] MEDS: PANTOPRAZOLE 40 MG TABLET (FP) PO SCH (10:36)
[2016-10-24] MEDS ORDERED: POTASSIUM CHLORIDE TABS 20 MEQ TABLET.ER (FP) PO ONE (10:37)
[2016-10-24] MEDS: POTASSIUM CHLORIDE TABS 20 MEQ TABLET.ER (FP) PO SCH (10:38)
[2016-10-24] MEDS: METOPROLOL TARTRATE 50 MG, METOPROLOL TARTRATE 25 MG PO SCH ×2 (10:38→22:26)
[2016-10-24] MEDS ORDERED: METOPROLOL TARTRATE 25 MG TABLET (FP) ONE ×2 (10:38→22:25)
[2016-10-24] MEDS ORDERED: METOPROLOL TARTRATE 50 MG TABLET (FP) ONE ×2 (10:38→22:24)
--- NOTE | 2016-10-24 11:05 | EKG ---
Test Reason : Blood Pressure : / mmHG Vent. Rate : 090 BPM Atrial Rate : 090 BPM P-R Int : 164 ms QRS Dur : 102 ms QT Int : 382 ms P-R-T Axes : 000 125 207 degrees QTc Int : 467 ms NORMAL SINUS RHYTHM INFERIOR INFARCT , AGE UNDETERMINED ANTEROLATERAL INFARCT (CITED ON OR BEFORE 23-OCT-2016) ABNORMAL ECG WHEN COMPARED WITH ECG OF 23-OCT-2016 19:41, SUSPECT ARM LEAD REVERSAL, INTERPRETATION ASSUMES NO REVERSAL Confirmed by FERNANDO CRYSTAL MD ([id number]) on 10/24/2016 11:04:57 AM Referred By: Confirmed By:FERNANDO CRYSTAL MD
--- NOTE | 2016-10-24 11:07 | EKG ---
Test Reason : Blood Pressure : / mmHG Vent. Rate : 099 BPM Atrial Rate : 099 BPM P-R Int : 154 ms QRS Dur : 100 ms QT Int : 372 ms P-R-T Axes : 039 066 029 degrees QTc Int : 477 ms NORMAL SINUS RHYTHM CANNOT RULE OUT ANTERIOR INFARCT , AGE UNDETERMINED ABNORMAL ECG WHEN COMPARED WITH ECG OF 28-SEP-2016 20:50, NON-SPECIFIC CHANGE IN ST SEGMENT IN ANTERIOR LEADS NONSPECIFIC T WAVE ABNORMALITY, IMPROVED IN LATERAL LEADS Confirmed by FERNANDO CRYSTAL MD ([id number]) on 10/24/2016 11:07:04 AM Referred By: Confirmed By:FERNANDO CRYSTAL MD
[2016-10-24 12:56] LABS: TROPONIN I 0.59 ng/ml (0.00-0.05)
--- NOTE | 2016-10-24 15:54 | PN ---
Progress Note (short form) - Note Progress Note: CABG report reviewed from [facility]. VEGA-LAD, SVG-PDA, SVG-OM, SVG-Diag. Given here presentation with chest pain and slight troponin elevation it is possible that one of the vein grafts is occluded. Will plan for a pharmacologic nuclear stress test tomorrow to re-evaluate for ischemia. Problem List - Problems (1) Chest pain Code(s): R07.9 - CHEST PAIN, UNSPECIFIED (2) Abnormal EKG Code(s): R94.31 - ABNORMAL ELECTROCARDIOGRAM [ECG] [EKG] (3) HLD (hyperlipidemia) Code(s): E78.5 - HYPERLIPIDEMIA, UNSPECIFIED (4) HTN (hypertension) Code(s): I10 - ESSENTIAL (PRIMARY) HYPERTENSION (5) NSTEMI (non-ST elevated myocardial infarction) Code(s): I21.4 - NON-ST ELEVATION (NSTEMI) MYOCARDIAL INFARCTION (6) SOB (shortness of breath) Code(s): R06.02 - SHORTNESS OF BREATH (7) CAD (coronary artery disease) Code(s): I25.10 - ATHSCL HEART DISEASE OF [place] CORONARY ARTERY W/O ANG PCTRS (8) Hx of CABG Code(s): Z95.1 - PRESENCE OF AORTOCORONARY BYPASS GRAFT
--- NOTE | 2016-10-24 16:00 | PN ---
Teaching Attending Note Name of Resident: Leora Lozoya ATTENDING PHYSICIAN STATEMENT I saw and evaluated the patient. I reviewed the resident's note and discussed the case with the resident. I agree with the resident's findings and plan as documented. SUBJECTIVE:no recurrent CP since being in the hospital. denies SOB,fever, chills , cough, N/V/C/D OBJECTIVE: Last Vital Signs Temp Pulse Resp BP Pulse Ox 98.0 F 73 18 173/93 98 10/24/16 07:44 10/24/16 11:59 10/24/16 14:00 10/24/16 11:59 10/24/16 14:00 General NAD CV S1 S2 RRR no murmur/rub/gallop +chest wall tenderness Lungs CTA B/L no wheezing/rales/rhonchi Abdomen soft NT/ND +BENITO drain in RUQ draining serous fluid ASSESSMENT AND PLAN: 61 yo F with recent Hx of CABG and multiple risk factors for CAD that presents with atypical chest pain. 1. Atypical CP- now CP free. troponins trended up to 0.64 and started on hep ggt. now trending down. will cont ggt. plan for NMST tomorrow. cont asa/ betablocker/statin (allergy to asa is only at higher doses than 81mg) 2. Cholecystitis- s/p drain. surgery deferred due to recent NSTEMI. surgery consulted. if stress test negative can do cholecystectomy on this admission. 3. DM- iss, bgm 4. HTN- controlled. cont home management 5. dvt ppx- hep ggt
--- NOTE | 2016-10-24 16:11 | PN ---
Physical Exam: SUBJECTIVE: Patient seen and examined, cheat pain has improved, no sob, [place], n, v / Troponin trended down. Stress test tomorrow. OBJECTIVE: Vital Signs Period Temp Pulse Resp BP Sys/Roger Pulse Ox Last 24 Hr 97.5 F-98.2 F 73-93 18-22 136-173/63-93 98-100 GENERAL: The patient is awake, alert, and fully oriented, in no acute distress. HEAD: Normal with no signs of trauma. EYES: PERRL, extraocular movements intact, sclera anicteric, conjunctiva clear. No ptosis. ENT: Ears normal, nares patent, oropharynx clear without exudates, moist mucous membranes. NECK: Trachea midline, full range of motion, supple. LUNGS: Breath sounds equal, clear to auscultation bilaterally, no wheezes, no crackles, no accessory muscle use. HEART: Regular rate and rhythm, S1, S2 without murmur, rub or gallop. ABDOMEN: Soft, nontender, nondistended, normoactive bowel sounds, no guarding, no rebound, no hepatosplenomegaly, no masses. BENITO drain for RUQ; no drain in bag; dry crusted; no surrounding erythema, edema EXTREMITIES: 2+ pulses, warm, well-perfused, no edema. NEUROLOGICAL: Cranial nerves II through XII grossly intact. Normal speech, gait not observed. PSYCH: Normal mood, normal affect. SKIN: Warm, dry, normal turgor, no rashes or lesions noted CBC, BMP 10/24/16 09:30 10/24/16 09:30 Active Medications Generic Name Dose Route Start Last Admin Trade Name Ketty PRN Reason Stop Dose Admin Amlodipine Besylate 10 mg 10/24/16 10:00 10/24/16 10:36 Norvasc - PO 10 mg DAILY [facility] Administration Aspirin 81 mg 10/24/16 10:00 10/24/16 10:35 Asa - PO 81 mg DAILY [facility] Administration Atorvastatin Calcium 80 mg 10/24/16 22:00 Lipitor - PO HS [facility] Docusate Sodium 100 mg 10/24/16 06:00 10/24/16 14:59 Colace - PO 100 mg TID [facility] Administration Furosemide 20 mg 10/24/16 10:00 10/24/16 10:36 Lasix - PO 20 mg DAILY [facility] Administration Heparin Sodium (Porcine) 1,000 unit 10/24/16 15:52 Heparin - IVPUSH PRN PRN Heparin Heparin Sodium (Porcine) 5,000 unit 10/24/16 15:52 Heparin - IVPUSH PRN PRN Heparin Heparin Sodium/Dextrose 500 mls @ 16 mls/hr 10/24/16 16:00 Heparin Infusion - IVPB TITR [facility] Protocol 800 UNITS/HR Insulin Aspart 1 vial 10/24/16 07:00 10/24/16 11:40 Novolog Vial Sliding Scale - SQ Not Given ACHS [facility] Protocol Metoprolol Tartrate 50 mg/ 75 mg 10/24/16 10:00 10/24/16 10:38 Metoprolol Tartrate 25 mg PO 75 mg BID [facility] Administration Morphine Sulfate 2 mg 10/23/16 23:18 Morphine Injection - IVPUSH Q4H PRN PAIN Pantoprazole Sodium 40 mg 10/24/16 10:00 10/24/16 10:36 Protonix - PO 40 mg DAILY [facility] Administration Potassium Chloride 40 meq 10/24/16 10:00 10/24/16 10:38 K-Dur - PO 40 meq DAILY [facility] Administration Ranitidine HCl 150 mg 10/24/16 10:00 10/24/16 10:36 Zantac - PO 150 mg DAILY [facility] Administration Senna 1 tab 10/24/16 22:00 Senna - PO HS [facility] ASSESSMENT/PLAN: This is a 61 year old female with a past medical history of hypertension, hyperlipidemia, coronary artery disease NSTEMI 08/19 for which she had CABG. Presents with chest pain. ER notable for up trend in troponin and abnormal ECG; started on heparin drip. Patient was recently admitted for cholecysitis, left with drain in and PNA. #Atypical chest pain;improved -ECG st wave abnormalities with possible inferior infarct -echo pending -started on heparin gtt -troponin 0.03-> 0.64-> 0.59 -stress test in AM; r/o occluded vessel -asa allergy -metoprolol 75m bid sched -cardio consulted #BENITO drain from cholecystitis -surgery to evaluate #hypertension: -norvasc 10mg po daily #hyperlipidemia: -atorvastatin 80 mg po daily FEN: Fluids: po Electrolytes: wnl Diet: npo after midnight VTE: on heparin Disposition: stress test and surgery eval Visit type - Emergency Visit Emergency Visit: Yes ED Registration Date: 10/23/16 Care time: The patient presented to the Emergency Department on the above date and was hospitalized for further evaluation of their emergent condition. - New Patient This patient is new to me today: Yes Date on this admission: 10/24/16 - Critical Care Critical Care patient: No
[2016-10-24] MEDS: HEPARIN INFUSION - 500 ML IVPB SCH ×2 (16:42→18:18)
[2016-10-24] MEDS ORDERED: SENNOSIDES 8.6MG TABLET (FP) PO SCH (22:00)
[2016-10-24] MEDS ORDERED: ATORVASTATIN CA 80 MG TABLET (FP) PO SCH (22:00)
[2016-10-25] MEDS: INSULIN SLIDING SCALE (NOVOLOG) 1 VIAL SQ SCH ×3 (06:14→17:40)
[2016-10-25] MEDS: DOCUSATE SODIUM 100 MG CAPSULE (FP) PO SCH ×2 (06:14→13:20)
[2016-10-25 07:54] LABS: CALCIUM 9.3 mg/dL (8.5-10.1); COCKROFT - GAULT 119.9435; CREATININE 0.5 mg/dL (0.55-1.02)
--- NOTE | 2016-10-25 09:40 | PN ---
Progress Note, Physician Chief Complaint: seen and examined in cardiology She is having a stress test today Denies chest pain or SOB - Current Medication List Current Medications: Active Medications Amlodipine Besylate (Norvasc -) 10 mg PO DAILY [facility] Last Admin: 10/24/16 10:36 Dose: 10 mg Aspirin (Asa -) 81 mg PO DAILY [facility] Last Admin: 10/24/16 10:35 Dose: 81 mg Atorvastatin Calcium (Lipitor -) 80 mg PO HS [facility] Last Admin: 10/24/16 22:26 Dose: Not Given Docusate Sodium (Colace -) 100 mg PO TID [facility] Last Admin: 10/25/16 06:14 Dose: Not Given Furosemide (Lasix -) 20 mg PO DAILY [facility] Last Admin: 10/24/16 10:36 Dose: 20 mg Heparin Sodium (Porcine) (Heparin -) 1,000 unit IVPUSH PRN PRN PRN Reason: Heparin Heparin Sodium (Porcine) (Heparin -) 5,000 unit IVPUSH PRN PRN PRN Reason: Heparin Heparin Sodium/Dextrose (Heparin Infusion -) 500 mls @ 16 mls/hr IVPB TITR [facility] ; 800 UNITS/HR PRN Reason: Protocol Last Titration: 10/25/16 03:47 Dose: 700 units/hr Dipyridamole 36.2 mg/ Dextrose 36.2 mls @ 543 mls/hr IVPB ONCE ONE Stop: 10/25/16 10:03 Insulin Aspart (Novolog Vial Sliding Scale -) 1 vial SQ ACHS [facility] PRN Reason: Protocol Last Admin: 10/25/16 06:14 Dose: Not Given Metoprolol Tartrate 50 mg/ (Metoprolol Tartrate 25 mg) 75 mg PO BID [facility] Last Admin: 10/24/16 22:26 Dose: 75 mg Morphine Sulfate (Morphine Injection -) 2 mg IVPUSH Q4H PRN PRN Reason: PAIN Pantoprazole Sodium (Protonix -) 40 mg PO DAILY [facility] Last Admin: 10/24/16 10:36 Dose: 40 mg Potassium Chloride (K-Dur -) 40 meq PO DAILY [facility] Last Admin: 10/24/16 10:38 Dose: 40 meq Ranitidine HCl (Zantac -) 150 mg PO DAILY [facility] Last Admin: 10/24/16 10:36 Dose: 150 mg Senna (Senna -) 1 tab PO HS [facility] Last Admin: 10/24/16 22:28 Dose: Not Given - Objective Vital Signs: Vital Signs Temperature 97.9 F 10/25/16 01:58 Pulse Rate 78 10/25/16 06:00 Respiratory Rate 20 10/25/16 06:00 Blood Pressure 140/81 10/25/16 08:55 O2 Sat by Pulse Oximetry (%) 95 10/24/16 22:00 Constitutional: Yes: No Distress Eyes: Yes: Conjunctiva Clear Cardiovascular: Yes: Regular Rate and Rhythm Respiratory: Yes: CTA Bilaterally Gastrointestinal: Yes: Soft (non-tender; lawanda drain in place.) Edema: No Neurological: Yes: Alert Labs: CBC, BMP 10/24/16 09:30 10/25/16 05:35 INR, PTT INR 0.98 (0.82-1.09) 10/23/16 20:00 Laboratory Tests 10/23/16 10/24/16 10/24/16 20:00 06:00 09:30 WBC 6.5 Hct 39.7 Plt Count 294 PTT (Actin FS) Sodium Potassium Anion Gap BUN Creatinine Random Glucose Creatine Kinase 105 116 Troponin I 0.03 0.64 H* 10/24/16 10/25/16 10/25/16 11:40 02:30 05:35 WBC Hct Plt Count PTT (Actin FS) 49.6 H D Sodium 141 Potassium 4.1 Anion Gap 13 BUN 9 D Creatinine 0.5 L Random Glucose 125 H Creatine Kinase 124 Troponin I 0.59 H Assessment/Plan Assessment/Plan 61 year old woman with a history of HTN, HLD, CAD NSTEMI 08/19 underwent CABG, followed by admission for cholecystitis s/p cholecystostomy due to recent CABG, then admitted for possible PNA 08/2016, now admitted with atypical CP. Chest pain-atypical Troponin trended slightly up with normal CK level heparin gtt was initiated check echo to re-evaluate LV function For persantine MIBI today to rule out graft closure. Cholecystitis -GI/Surgery follow up -drain remains in place
[2016-10-25] MEDS ORDERED: WATER IVPB ONE (10:00)
[2016-10-25] MEDS ORDERED: DEXTROSE 5% IVPB ONE (10:00)
[2016-10-25] MEDS ORDERED: DIPYRIDAMOLE STRESS TEST IVPB ONE (10:00)
[2016-10-25] MEDS ORDERED: AMINOPHYLLINE 250 MG/10 ML VIAL ONE (11:25)
[2016-10-25] MEDS ORDERED: METOPROLOL TARTRATE 50 MG TABLET (FP) ONE (12:19)
[2016-10-25] MEDS ORDERED: METOPROLOL TARTRATE 25 MG TABLET (FP) ONE (12:19)
[2016-10-25] MEDS: ASPIRIN 81 MG CHEWABLE TABLETS PO SCH (12:23)
[2016-10-25] MEDS: FUROSEMIDE 20 MG TABLET (FP) PO SCH (12:23)
[2016-10-25] MEDS: amLODIPine BESYLATE 10 MG TABLET (FP) PO SCH (12:23)
[2016-10-25] MEDS: METOPROLOL TARTRATE 50 MG, METOPROLOL TARTRATE 25 MG PO SCH (12:23)
[2016-10-25] MEDS: RANITIDINE HCL 150 MG TABLET (FP) PO SCH (12:23)
[2016-10-25] MEDS: POTASSIUM CHLORIDE TABS 20 MEQ TABLET.ER (FP) PO SCH (12:23)
[2016-10-25] MEDS: PANTOPRAZOLE 40 MG TABLET (FP) PO SCH (12:24)
--- NOTE | 2016-10-25 12:25 | PN ---
Physical Exam: SUBJECTIVE: Patient seen and examined, no new complaints, denies chest pain, stress test today. OBJECTIVE: Vital Signs Period Temp Pulse Resp BP Sys/Roger Pulse Ox Last 24 Hr 97.5 F-98.0 F 78-94 18-20 140-185/78-93 95-98 GENERAL: The patient is awake, alert, and fully oriented, in no acute distress. HEAD: Normal with no signs of trauma. EYES: PERRL, extraocular movements intact, sclera anicteric, conjunctiva clear. No ptosis. ENT: Ears normal, nares patent, oropharynx clear without exudates, moist mucous membranes. NECK: Trachea midline, full range of motion, supple. LUNGS: Breath sounds equal, clear to auscultation bilaterally, no wheezes, no crackles, no accessory muscle use. HEART: Regular rate and rhythm, S1, S2 without murmur, rub or gallop. ABDOMEN: Soft, nontender, nondistended, normoactive bowel sounds, no guarding, no rebound, no hepatosplenomegaly, no masses. EXTREMITIES: 2+ pulses, warm, well-perfused, no edema. NEUROLOGICAL: Cranial nerves II through XII grossly intact. Normal speech, gait not observed. PSYCH: Normal mood, normal affect. SKIN: Warm, dry, normal turgor, no rashes or lesions noted Laboratory Results - last 24 hr 10/24/16 10/24/16 10/24/16 11:40 16:40 17:10 PTT (Actin FS) 87.0 H D Sodium Potassium Chloride Carbon Dioxide Anion Gap BUN Creatinine POC Glucometer 117 Random Glucose Calcium Creatine Kinase 124 Troponin I 0.59 H 10/24/16 10/25/16 10/25/16 21:35 02:30 05:35 PTT (Actin FS) 49.6 H D Sodium 141 Potassium 4.1 Chloride 105 Carbon Dioxide 23 Anion Gap 13 BUN 9 D Creatinine 0.5 L POC Glucometer 147 Random Glucose 125 H Calcium 9.3 Creatine Kinase Troponin I 10/25/16 06:12 PTT (Actin FS) Sodium Potassium Chloride Carbon Dioxide Anion Gap BUN Creatinine POC Glucometer 123 Random Glucose Calcium Creatine Kinase Troponin I Active Medications Generic Name Dose Route Start Last Admin Trade Name Freq PRN Reason Stop Dose Admin Amlodipine Besylate 10 mg 10/24/16 10:00 10/25/16 12:23 Norvasc - PO 10 mg DAILY [facility] Administration Aspirin 81 mg 10/24/16 10:00 10/25/16 12:23 Asa - PO 81 mg DAILY [facility] Administration Atorvastatin Calcium 80 mg 10/24/16 22:00 10/24/16 22:26 Lipitor - PO Not Given HS [facility] Docusate Sodium 100 mg 10/24/16 06:00 10/25/16 06:14 Colace - PO Not Given TID [facility] Furosemide 20 mg 10/24/16 10:00 10/25/16 12:23 Lasix - PO 20 mg DAILY [facility] Administration Heparin Sodium (Porcine) 1,000 unit 10/24/16 15:52 Heparin - IVPUSH PRN PRN Heparin Heparin Sodium (Porcine) 5,000 unit 10/24/16 15:52 Heparin - IVPUSH PRN PRN Heparin Heparin Sodium/Dextrose 500 mls @ 16 mls/hr 10/24/16 16:00 10/25/16 03:47 Heparin Infusion - IVPB 700 units/hr TITR [facility] Titration Protocol 800 UNITS/HR Insulin Aspart 1 vial 10/24/16 07:00 10/25/16 12:14 Novolog Vial Sliding Scale - SQ Not Given ACHS [facility] Protocol Metoprolol Tartrate 50 mg/ 75 mg 10/24/16 10:00 10/25/16 12:23 Metoprolol Tartrate 25 mg PO 75 mg BID [facility] Administration Morphine Sulfate 2 mg 10/23/16 23:18 Morphine Injection - IVPUSH Q4H PRN PAIN Pantoprazole Sodium 40 mg 10/24/16 10:00 10/25/16 12:24 Protonix - PO 40 mg DAILY [facility] Administration Potassium Chloride 40 meq 10/24/16 10:00 10/25/16 12:23 K-Dur - PO 40 meq DAILY [facility] Administration Ranitidine HCl 150 mg 10/24/16 10:00 10/25/16 12:23 Zantac - PO 150 mg DAILY [facility] Administration Senna 1 tab 10/24/16 22:00 10/24/16 22:28 Senna - PO Not Given HS [facility] ASSESSMENT/PLAN: This is a 61 year old female with a past medical history of hypertension, hyperlipidemia, coronary artery disease NSTEMI 08/19 for which she had CABG. Presents with chest pain. ER notable for up trend in troponin and abnormal ECG; started on heparin drip. Patient was recently admitted for cholecysitis, left with drain in and PNA. #Atypical chest pain;improved -troponin 0.03-> 0.64-> 0.59 -started on heparin gt -ECG st wave abnormalities with possible inferior infarct -echo pending -Stress test today ; r/o occluded vessel -asa -metoprolol 75m bid sched -statin -cardio consulted #BENITO drain from cholecystitis -still with drain nothing leaking out [id number] -surgery to evaluate #hypertension: -norvasc 10mg po daily #hyperlipidemia: -atorvastatin 80 mg po daily FEN: Fluids: po Electrolytes: wnl Diet:low sodium VTE: on heparin Disposition: stress test and surgery eval Visit type - Emergency Visit Emergency Visit: Yes ED Registration Date: 10/23/16 Care time: The patient presented to the Emergency Department on the above date and was hospitalized for further evaluation of their emergent condition. - New Patient This patient is new to me today: No - Critical Care Critical Care patient: No
[2016-10-25] MEDS: HEPARIN INFUSION - 500 ML IVPB SCH (15:15)
--- NOTE | 2016-10-25 15:22 | PN ---
Teaching Attending Note Name of Resident: Leora Lozoya ATTENDING PHYSICIAN STATEMENT I saw and evaluated the patient. I reviewed the resident's note and discussed the case with the resident. I agree with the resident's findings and plan as documented. SUBJECTIVE: No further chest pain. OBJECTIVE: Vital Signs Period Temp Pulse Resp BP Sys/Roger Pulse Ox Last 24 Hr 97.5 F-98.0 F 78-94 18-20 140-185/78-93 95-98 HEART: S1 S2, RRR LUNGS: Clear ABDOMEN: Soft, non-tender, non-distended, normal BS. Cholecystostomy in place EXTREMITIES: No edema ASSESSMENT AND PLAN: This is a 61-year-old woman with a history of CAD, CABG who presented with chest pain. 1. Chest pain, CAD, history of CABG - Troponin increased to 0.64 - Continue heparin IV drip, aspirin, Lopressor, Lipitor - Stress test today 2. Cholecystitis, history of percutaneous cholecystostomy - Surgery deferred pending results of stress test 3. Type 2 DM - Continue Novolog sliding scale 4. HTN - Continue Norvasc 5. Hyperlipidemia - Continue Lipitor
--- NOTE | 2016-10-25 15:25 | PN ---
Progress Note (short form) - Note Progress Note: Stress test results noted. Will transfer to [facility] for cardiac cath and evaluation of CABG grafts, revascularization as needed. Problem List - Problems (1) Chest pain Code(s): R07.9 - CHEST PAIN, UNSPECIFIED (2) Abnormal EKG Code(s): R94.31 - ABNORMAL ELECTROCARDIOGRAM [ECG] [EKG] (3) HLD (hyperlipidemia) Code(s): E78.5 - HYPERLIPIDEMIA, UNSPECIFIED (4) HTN (hypertension) Code(s): I10 - ESSENTIAL (PRIMARY) HYPERTENSION (5) NSTEMI (non-ST elevated myocardial infarction) Code(s): I21.4 - NON-ST ELEVATION (NSTEMI) MYOCARDIAL INFARCTION (6) SOB (shortness of breath) Code(s): R06.02 - SHORTNESS OF BREATH (7) CAD (coronary artery disease) Code(s): I25.10 - ATHSCL HEART DISEASE OF [place] CORONARY ARTERY W/O ANG PCTRS (8) Hx of CABG Code(s): Z95.1 - PRESENCE OF AORTOCORONARY BYPASS GRAFT
[2016-10-25 20:16] VITALS: BP 130/67; PULSE 88; TEMP 97.2
--- NOTE | 2016-10-26 08:02 | PN ---
Physical Exam: SUBJECTIVE: Patient seen and examined OBJECTIVE: Vital Signs Period Temp Pulse Resp BP Sys/Roger Pulse Ox Last 24 Hr 97.2 F-98 F 72-92 20-20 130-185/58-89 98 GENERAL: The patient is awake, alert, and fully oriented, in no acute distress. HEAD: Normal with no signs of trauma. EYES: PERRL, extraocular movements intact, sclera anicteric, conjunctiva clear. No ptosis. ENT: Ears normal, nares patent, oropharynx clear without exudates, moist mucous membranes. NECK: Trachea midline, full range of motion, supple. LUNGS: Breath sounds equal, clear to auscultation bilaterally, no wheezes, no crackles, no accessory muscle use. HEART: Regular rate and rhythm, S1, S2 without murmur, rub or gallop. ABDOMEN: Soft, nontender, nondistended, normoactive bowel sounds, no guarding, no rebound, no hepatosplenomegaly, no masses. EXTREMITIES: 2+ pulses, warm, well-perfused, no edema. NEUROLOGICAL: Cranial nerves II through XII grossly intact. Normal speech, gait not observed. PSYCH: Normal mood, normal affect. SKIN: Warm, dry, normal turgor, no rashes or lesions noted Laboratory Results - last 24 hr 10/25/16 10/25/16 10/25/16 12:06 12:55 16:00 PTT (Actin FS) 40.9 H 152.1 H D POC Glucometer 117 10/25/16 17:17 PTT (Actin FS) POC Glucometer 126 ASSESSMENT/PLAN: This is a 61 year old female with a past medical history of hypertension, hyperlipidemia, coronary artery disease NSTEMI 08/19 for which she had CABG. Presents with chest pain. ER notable for up trend in troponin and abnormal ECG; started on heparin drip. Patient was recently admitted for cholecysitis, left with drain in and PNA. #Atypical chest pain;improved -troponin 0.03-> 0.64-> 0.59 -started on heparin gt -ECG st wave abnormalities with possible inferior infarct -echo pending -Stress test today ; r/o occluded vessel -asa -metoprolol 75m bid sched -statin -cardio consulted #BENITO drain from cholecystitis -still with drain nothing leaking out [id number] -surgery to evaluate #hypertension: -norvasc 10mg po daily #hyperlipidemia: -atorvastatin 80 mg po daily FEN: Fluids: po Electrolytes: wnl Diet:low sodium VTE: on heparin Disposition: stress test and surgery eval Stress test results noted. Will transfer to [facility] for cardiac cath and evaluation of CABG grafts, revascularization as needed.
--- NOTE | 2016-10-26 08:08 | DS ---
Physical Exam: SUBJECTIVE: Patient seen and examined, denies chest pain. Nuclear stress test showing inferior reversible defect; being transferred to [facility] for cardiac cath. OBJECTIVE: Vital Signs Period Temp Pulse Resp BP Sys/Roger Pulse Ox Last 24 Hr 97.2 F-98 F 72-92 20-20 130-185/58-89 98 PHYSICAL EXAM GENERAL: The patient is awake, alert, and fully oriented, in no acute distress. HEAD: Normal with no signs of trauma. EYES: PERRL, extraocular movements intact, sclera anicteric, conjunctiva clear. ENT: Ears normal, nares patent, oropharynx clear without exudates, moist mucous membranes. NECK: Trachea midline, full range of motion, supple. LUNGS: Breath sounds equal, clear to auscultation bilaterally, no wheezes, no crackles, no accessory muscle use. HEART: Regular rate and rhythm, S1, S2 without murmur, rub or gallop. ABDOMEN: Soft, nontender, nondistended, normoactive bowel sounds, no guarding, no rebound, no hepatosplenomegaly, no masses. EXTREMITIES: 2+ pulses, warm, well-perfused, no edema. NEUROLOGICAL: Cranial nerves II through XII grossly intact. Normal speech, gait not observed. PSYCH: Normal mood, normal affect. SKIN: Warm, dry, normal turgor, no rashes or lesions noted. LABS Laboratory Results - last 24 hr 10/25/16 10/25/16 10/25/16 12:06 12:55 16:00 PTT (Actin FS) 40.9 H 152.1 H D POC Glucometer 117 10/25/16 17:17 PTT (Actin FS) POC Glucometer 126 HOSPITAL COURSE: Date of Admission:10/23/16 Date of Discharge: 10/26/16 This is a 61 year old female with a past medical history of hypertension, hyperlipidemia, coronary artery disease NSTEMI 08/19 for which she had CABG. Presents with chest pain. ER notable for up trend in troponin and abnormal ECG; started on heparin drip. Patient was recently admitted for cholecysitis, left with drain, did not have cholecystectomy due to not having cardiac clearance. Nuclear stress test reveals small zone of inferior reversible defect from the base to mid cavity suggest mild intensity ischemia; being transsfered to [facility] for cardiac cath to evaluate for occlusion of graft. #Atypical chest pain;improved -troponin 0.03-> 0.64-> 0.59 -started on heparin gt -ECG st wave abnormalities with possible inferior infarct -echo -asa -metoprolol 75m bid sched -statin -cardio consulted #BENITO drain from cholecystitis -still with drain nothing leaking out [id number] -surgery to evaluate #hypertension: -norvasc 10mg po daily #hyperlipidemia: -atorvastatin 80 mg po daily FEN: Fluids: po Electrolytes: wnl Diet:low sodium VTE: on heparin Minutes to complete discharge: 35 Discharge Summary Reason For Visit: CHEST PAIN Current Active Problems CAD (coronary artery disease) (Acute) Chest pain (Acute) Hx of CABG (Acute) - Instructions Referrals: STAFF,NOT ON [Primary Care Provider] - Disposition: TRANSFER ACUTE CARE/OTHER HOSP - Home Medications Comprehensive Discharge Medication List: Ambulatory Orders Aspirin [ASA -] 81 mg PO DAILY 08/24/16 Docusate Sodium [Dok] 100 mg PO TID 08/24/16 Metformin HCl 500 mg PO BID 08/24/16 Sennosides [Senna] 8.6 mg PO HS 08/24/16 Acetaminophen [Tylenol .Regular Strength -] 650 mg PO Q6H PRN #0 tablet Amlodipine Besylate [Norvasc -] 10 mg PO DAILY #30 tablet 09/11/16 Atorvastatin Ca [Lipitor] 80 mg PO HS tablet 09/11/16 Furosemide [Lasix -] 20 mg PO DAILY tablet 09/11/16 Metoprolol Tartrate [Lopressor -] 75 mg PO BID #30 tablet 09/11/16 Pantoprazole Sodium [Protonix -] 40 mg PO DAILY #30 09/11/16 Potassium Chloride [K-Dur -] 40 meq PO DAILY 09/11/16 This patient is new to me today: No Emergency Visit: Yes ED Registration Date: 10/23/16 Care time: The patient presented to the Emergency Department on the above date and was hospitalized for further evaluation of their emergent condition. Critical Care patient: No - Discharge Referral Referred to [facility] No
== END 2016-10-25 21:25 | disposition short-term general hospital (02) | DRG 190 ==
LOC: JER 19:32 → JERBED 22:03 → J4W 10-24 13:40
PROVIDERS: ADMIT Internal Medicine; ATTEND Internal Medicine
DX: I21.4 Non-ST elevation (NSTEMI) myocardial infarction (principal); I25.10 Atherosclerotic heart disease of native coronary artery without angina pectoris; E78.5 Hyperlipidemia, unspecified; E11.9 Type 2 diabetes mellitus without complications; J45.909 Unspecified asthma, uncomplicated; E78.00 Pure hypercholesterolemia, unspecified; Z95.1 Presence of aortocoronary bypass graft; Z88.1 Allergy status to other antibiotic agents; K81.9 Cholecystitis, unspecified
CPT/HCPCS: 36415; 71010-TC; 78452-TC; 80048; 80053; 82550; 83880; 84484; 85025; 85610; 85730; 93005; 93010; 93017; 93306-TC; 99285-25; A9502; J1245; J1644